=== PATIENT | male | born 1985 | race Hispanic/Latino ===

== ENCOUNTER 2021-07-20 14:15 | Emergency (ER) | payer OTHER, SELFPAY ==
--- NOTE | ~2021-07-20 | CT_ITS ---
EXAMINATION: CT abdomen pelvis wo con DATE: 07/20/2021 16:53 INDICATION: Left lower quadrant and left flank pain TECHNIQUE: Computed tomography (CT) of the abdomen and pelvis was performed without intravenous contr ast. The dose-length product (DLP) was 1040.76 mGy-cm. Automated exposure control and iterative recon struction technique were employed. COMPARISON: None FINDINGS: The lung bases are clear. The heart size is normal. The liver is diffusely low in attenuati on when compared with the spleen, consistent with hepatic steatosis. The spleen, pancreas, gallbladde r, and adrenal glands are normal. The kidneys are unremarkable. No stones are identified in the kidne ys, ureters, or bladder. There is no hydronephrosis or hydroureter. No pathologically enlarged abdomi nal or pelvic lymph nodes are identified. There is no free intraperitoneal gas or evidence of bowel o bstruction. There is a fat-containing umbilical hernia. IMPRESSION: 1. No CT correlate for the patient's symptoms. Reviewed, dictated and finalized at location F.
[2021-07-20 14:20] VITALS: BP 136/80; PULSE 73; RESP 16; TEMP 36.5; O2SAT 98
--- NOTE | 2021-07-20 16:37 | ED.ABDPAIN ---
HPI - Abdominal Pain General Chief Complaint: Abdominal Pain Stated Complaint: abd pain Time Seen by Provider: 07/20/21 16:36 Source: patient Mode of arrival: ambulatory Limitations: no limitations History of Present Illness HPI narrative: Patient is a 35-year-old male complaining of left flank pain, 5 out of 10, sharp, nonradiating started proxy 1 month ago. Patient denies any abdominal pain, chest pain, shortness of breath, nausea, vomiting, diarrhea, urinary symptoms, fever or chills. Review of Systems Review of Systems: All systems reviewed & are unremarkable except as noted in HPI and below Constitutional: Constitutional: Denies body ache(s), Denies chills, Denies excessive sweating, Denies fatigue, Denies fever(s), Denies headache(s), Denies lethargy, Denies malaise, Denies weakness and Denies weight loss Eyes: Eyes: Denies blurry vision, Denies change in vision and Denies loss of vision ENT: Denies dizziness, Denies ear discharge, Denies headache(s), Denies lip swelling, Denies epistaxis, Denies nasal congestion, Denies neck pain, Denies throat swelling and Denies tongue swelling Cardiovascular: Cardiovascular: Denies chest pain, Denies chest pain at rest, Denies chest pain with activity, Denies diaphoresis, Denies rapid heart rate, Denies edema, Denies irregular heart rhythm, Denies lightheadedness, Denies palpitations, Denies dyspnea and Denies dyspnea on exertion Respiratory: Respiratory: Denies chest congestion, Denies cough, Denies hemoptysis, Denies dyspnea and Denies dyspnea on exertion Gastrointestinal: Gastrointestinal: Denies melena, Denies hematochezia, Denies diarrhea, Denies nausea, Denies vomiting and Denies hematemesis Musculoskeletal: Musculoskeletal: Denies abnormal gait, Denies deformity, Denies joint swelling, Denies limited range of motion, Denies neck pain and Denies numbness Neurologic: Denies Abnormal speech present, Denies abnormal gait, Denies confusion, Denies dizziness, Denies headache(s), Denies focal weakness, Denies loss of vision, Denies numbness, Denies Other visual disturbances, Denies Sensory deficit (Neuro) and Denies weakness Psychiatric: Psychiatric: Denies confusion, Denies depression, Denies auditory hallucinations, Denies homicidal ideation and Denies suicidal ideation Endocrine: Endocrine: Denies cold intolerance, Denies excessive sweating, Denies fatigue, Denies heat intolerance and Denies palpitations Hematologic/Lymphatic: Hematologic/Lymphatic: Denies easy bleeding and Denies easy bruising Allergic/Immunologic: Allergic/Immunologic: Denies lip swelling, Denies throat swelling and Denies tongue swelling PMFSH Comments Past medical history: None Family history: None Social history: Non-smoker no EtOH or drug use Exam Const: General: cooperative, healthy appearing, comfortable, no acute distress, well developed, alert and awake; No confusion Orientation/consciousness: oriented to person, oriented to place, oriented to time, patient oriented x3 and No confusion Limitations: no limitations HENMT: Head: normal to inspection, normocephalic and atraumatic Ears: hearing grossly normal bilaterally, TM normal on the right and TM normal on the left General nose exam: Normal external nose present, Normal nares present and No nasal discharge present Face and sinus: normal facial exam Mouth: Yes Normal oral and palatal mucosa present, Yes lip normal, Yes tongue normal and Yes oropharynx normal Throat: posterior oropharynx normal, tonsils normal and uvula midline Eyes: General: appearance normal, both eyes and all related structures Pupils: Equal, round and reactive pupils present EOM: EOMs intact bilaterally Neck: Neck: normal visual inspection, full ROM, no lymphadenopathy and no meningeal signs Chest: Chest palpation & inspection: normal inspection of the chest Resp: Effort & Inspection: normal respiratory effort, able to speak in complete sentences, no respiratory distress and not tachypn
[2021-07-20 16:52] LABS: Basophils Absolute Auto 0.1 K/mm3 (0.0-0.1); Basophils Percent Auto 0.5 % (0.2-1.2); Eosinophils Absolute Auto 0.1 K/mm3 (0-0.3); Eosinophils Percent Auto 0.9 % (0-4.4); Hematocrit 48.2 % (42.0-52.0); Hemoglobin 15.9 g/dL (14.0-18.0); Immature Granulocyte Absolute 0.03 K/mm3 (0.00-0.031); Immature Granulocyte Percent A 0.3 % (0-0.5); Lymphocytes Absolute Auto 3.11 K/mm3 (0.9-3.2); Lymphocytes Percent Auto 30.8 % (18.3-44.2); Mean Corpuscular Hemoglobin 31.1 pg (26-34); Mean Corpuscular Volume 94.1 fl (80-100); Mean Platelet Volume 10.1 fl (7.4-10.4); Monocytes Absolute Auto 0.7 K/mm3 (0.1-0.6); Monocytes Percent Auto 6.6 % (2.6-8.5); Neutrophils Absolute Auto 6.1 K/mm3 (1.3-6.7); Neutrophils Percent Auto 60.9 % (45.5-73.1); Platelet Count Result 323 k/mm3 (150-375); Red Blood Count 5.12 M/mm3 (4.6-6.20); Red Cell Distribution Width 13.1 % (11.5-14.5); White Blood Count 10.1 K/mm3 (4.5-10.0)
[2021-07-20 17:03] LABS: Alanine Aminotransferase 57 U/L (4-50); Albumin Level 5.1 g/dL (3.5-5.1); Alkaline Phosphatase 77 U/L (38-126); Anion Gap 9 mmol/L (8-16); Aspartate Amino Transferase 45 U/L (17-59); Bilirubin,Total 0.7 mg/dL (0.2-1.3); Blood Urea Nitrogen 19 mg/dL (9-20); Calcium 9.3 mg/dL (8.4-10.2); Carbon Dioxide 28 mmol/L (22-30); Chloride 104 mmol/L (98-107); Estimated CRCL calculation 102 ml/min; Estimated Glomerular Filt Rate > 60; Glucose 96 mg/dL (65-110); Lipase 63 U/L (23-300); Potassium 4.1 mmol/L (3.4-5.0); Sodium 141 mmol/L (137-145)
[2021-07-20 17:23] LABS: Add Urine Microscopic? YES; Appearance Urine Clear (Clear); Bilirubin Urine Negative (Negative); Blood Urine 2+ (Negative); Color Urine Amber (Yellow); Glucose Urine UA Negative (Negative); Ketones Urine Trace mg/dL (Negative); Leukocyte Esterase Ur Negative LEU/UL (Negative); Mucus Urine Moderate /lpf; Nitrate Urine Negative (Negative); Protein Urine 1+ mg/dL (Negative); Specific Grav Ur 1.029 (1.001-1.035); Squamous Epithelial Cell Urine Rare /hpf (Few); Urobilinogen Urine Negative mg/dL (<2.0); WBC Urine 0-3 /hpf
[2021-07-20 18:34] VITALS: BP 142/86; PULSE 86; RESP 14; O2SAT 99
== END 2021-07-20 18:35 | disposition home or self-care (01) ==
PROVIDERS: Emergency Provider Emergency Medicine
DX: R10.9 Unspecified abdominal pain (principal); R31.29 Other microscopic hematuria
CPT/HCPCS: 36415; 74176; 80053; 81001; 83690; 85025; 99284

== ENCOUNTER 2024-04-25 07:55 | Outpatient (CLI) | payer OTHER, MEDICAID, SELFPAY ==
--- OUTSIDE RECORDS SUMMARY | 2024-04-25 08:02 | XMS_ITS | Clinical Summary ---
Author Organization [facility] Address [address] [address] Care Team Providers Care Quality Engineering Manager Name Role Phone Jeremy Herrera MD Primary Care Provider [phone] Source Comments [facility],non-owned Affiliates and Associated Physician Practices is amultiple site organization consisting of ambulatory clinics and hospital sitesin [place] and [place]. This disclosure is being madepursuant to the Care Everywhere program and may not contain all information available regarding this patient. Last updated 17.[facility] Allergies No known active allergies Medications * Be aware that medications may not be up to date on this document. Alwaysverify current medications with the patient. Medication Sig Dispensed Refills Start Date End Date Status doxycycline hyclate (VIBRAMYCIN) 100 MG tablet Take 100 mg by mouth 2 times daily FOR 7 DAYS 08/01/2021 Active Active Problems Problem Noted Date Diagnosed Date MRSA (methicillin resistant staph aureus) cultur e positive 02/19/2014 Overview (03/02/2014): right buttocks Resolved Problems Problem Noted Date Diagnosed Date Resolved Date Cough 06/14/2009 08/05/2021 Immunizations Name Administration Dates Next Due FLU VACCINE TRI IIV3 SPLIT IM (FLUVIRIN) 014 INFLUENZA VACCINE, QUADR. (F LUZONE; FLULAVAL; FLUARIX; AFLURIA QUADRIVALENT; 6MO+), 0.5 ML (IIV4) 02/18/2021 INFLUENZA VACCINE, TRIV. (FL UZONE; FLULAVAL; FLUARIX; AFLURIA TRIVALENT; 6MO+), 0.5 ML (IIV3) 01/10/2015 Family History Medical History Relation Name Comments Hypercholesterolemia Father CAD (Coronary Artery Disease) Maternal Grandfather SC 60's Cancer - Pancreatic Maternal Grandmother Depression Mother Diabetes Mother Thyroid Disease Mother Cancer - Lung Paternal Grandfather Cancer - Other Paternal Grandmother stoma ch None Known Sister Cancer - Colon Neg Hx Colon polyps Neg Hx Relation Name Status Comments Father Alive Maternal Grandfather Maternal Grandmother Mother Alive Paternal Grandfather Paternal Grandmother Sister Alive Social History Tobacco Use Types Packs/Day Years Used Date Smoking Tobacco: Never Smokeless Tobacco: Former Chew Quit: 06/2021 Alcohol Use Standard Drinks/Week Comments Yes 1.7 (1 standard drink = 0.6 oz p ure alcohol) PHQ-2 Answer Date Recorded PHQ2 TOTAL SCORE 0 08/05/2021 Sex and Gender Information Value Date Recorded Sex Assigned at Male 03/06/2021 6:59 AM [employer] Gender Identity Male 03/06/2021 6:59 AM [employer] Sexual Orientation Straight 03/06/2021 6: 59 AM [employer] Last Filed Vital Signs Vital Sign Reading Time Taken Comments Blood Pressure 132/80 08/05/2021 4:00 PM CDT Pulse 75 08/05/2021 4:00 PM CDT Temperature 36.7 ??C (98.1 ??F) 03/03/2018 12:[address] Respiratory Rate 17 07/10/2015 9:50 AM CDT Oxygen Saturation 97% 08/05/2021 4:00 PM CDT Inhaled Oxygen Concentration - - Weight 99.9 kg (220 lb 3.2 oz) 08/05/2021 4:00 P M CDT Height 162.6 cm (5' 4 ) 08/05/2021 4:00 PM CDT Body Mass Index 37.8 08/05/2021 4:00 PM CDT Plan of Treatment Health Maintenance Due Date Last Done Comments HIV SCREENING 2000 HEPATITIS C SCREENING 12/24/2003 DTAP/TDAP/TD VACCINES (1 - Tdap) 2004 HEPATITIS B VACCINE (1 of 3 - 19+ 3-dose series) 2004 COVID-19 VACCINE (2023-2 5 season) 2023 08/15/2020, 07/12/2020 INFLUENZA VACCINE (#1) 2023 , 01/10/2015, 01/02/2014 DEPRESSION SCREENING 03/29/2024 08/05/2021 ZOSTER VACCINE (1 of 2) 12/29/2035 HIB VACCINE Aged Out No longer eligi ble based on patient's age to complete this topic HPV VACCINE Aged Out No longer eligi ble based on patient's age to complete this topic MENINGOCOCCAL (Group B) VACCINE Aged Out No longer eligible b ased on patient's age to complete this topic MENINGOCOCCAL VACCINE Aged Out No nicole brittany eligible based on patient's age to complete this topic PNEUMOCOCCAL VACCINE Aged Out No long er eligible based on patient's age to complete this topic Additional Health Concerns Infection Onset Date Last Indicated MRSA 03/02/2014 03/02/2014 Care Teams Quality Engineering Manager Relationship Specialty Start Date End Date Jeremy Herrera MD [id number] [facility] [place] [phone] PCP - General Family Medicine 08/05/21
--- OUTSIDE RECORDS SUMMARY | 2024-04-25 08:02 | XMS_ITS | Patient Health Summary ---
Author Organization [facility] Address [address] [place] [address] Care Team Providers Care Back Digger Operator Name Role Phone Jeremy Herrera MD Primary Care Provider [phone] Note from [facility],non-owned Affiliates and Associated Physician Practices is amultiple site organization consisting of ambulatory clinics and hospital sitesin [place], [place], [place] and [place]. This disclosure is being madepursuant to the Care Everywhere program and may not contain all information available regarding this patient. Last updated 17.[facility] Allergies No known active allergies Medications * Be aware that medications may not be up to date on this document. Alwaysverify current medications with the patient. * doxycycline hyclate (VIBRAMYCIN) 100 MG tablet(Started 08/01/2021) Take 100 mg by mouth 2 times daily FOR 7 DAYS Active Problems Problem Noted Date Diagnosed Date MRSA (methicillin resistant staph aureus) cultur e positive 02/19/2014 Resolved Problems Problem Noted Date Diagnosed Date Resolved Date Cough 06/14/2009 08/05/2021 Immunizations * FLU VACCINE TRI IIV3 SPLIT IM (FLUVIRIN)(Given 01/02/2014) * INFLUENZA VACCINE, QUADR. (FLUZONE; FLULAVAL; FLUARIX; AFLURIA QUADRIVALENT; 6MO+), 0.5 ML (IIV4)(Given 02/18/2021) * INFLUENZA VACCINE, TRIV. (FLUZONE; FLULAVAL; FLUARIX; AFLURIA TRIVALENT; 6MO+), 0.5 ML (IIV3)(Given 01/10/2015) Social History Tobacco Use Types Packs/Day Years Used Date Smoking Tobacco: Never Smokeless Tobacco: Former Chew Quit: 06/2021 Alcohol Use Standard Drinks/Week Comments Yes 1.7 (1 standard drink = 0.6 oz p ure alcohol) PHQ-2 Answer Date Recorded PHQ2 TOTAL SCORE 0 08/05/2021 Sex and Gender Information Value Date Recorded Sex Assigned at Male 03/06/2021 6:59 AM CARD MOUNTER Gender Identity Male 03/06/2021 6:59 AM CARD MOUNTER Sexual Orientation Straight 03/06/2021 6: 59 AM CARD MOUNTER Last Filed Vital Signs Vital Sign Reading [...] Mass Index 37.8 08/05/2021 4:00 PM CDT Procedures * PATHOLOGY/CYTOLOGY REPORT ORDER(Performed 03/08/2021) * EGD(Performed 03/07/2021) Performed for H. pylori infection * CARDIAC EKG ORDER(Performed 07/11/2015) * CARDIAC RHYTHM STRIP ORDER(Performed 07/11/2015) * XR CHEST 2VW(Performed 07/10/2015) Performed for Chest pain, unspecified type * TROPONIN I(Performed 07/10/2015) * COMPREHENSIVE METABOLIC PANEL(Performed 07/10/2015) * CBC W AUTO DIFFERENTIAL(Performed 07/10/2015) * EKG 12-LEAD(Performed 07/10/2015) Performed for Chest pain, unspecified type * ED INCISION AND DRAINAGE(Performed 02/19/2014) Performed for Abscess of buttock, right * CULTURE WOUND+GRAM STAIN(Performed 02/19/2014) * TROPONIN I(Performed 04/13/2012) * XR CHEST 2VW(Performed 04/13/2012) Performed for Chest Pain * CBC W AUTO DIFFERENTIAL(Performed 04/13/2012) * URINALYSIS REFLEX MICROSCOPIC REFLEX CULTURE(Performed 04/13/2012) * BASIC METABOLIC PANEL (CALCIUM TOTAL)(Performed 04/13/2012) * TROPONIN I(Performed 04/13/2012) * D-DIMER(Performed 04/13/2012) * EKG 12-LEAD(Performed 04/13/2012) Performed for Chest Pain * GENERAL HEALTH PANEL(Performed 04/13/2012) Performed for Chest Pain * EKG 12-LEAD(Performed 04/13/2012) Performed for Chest Pain * XR CHEST 2VW(Performed 06/14/2009) Performed for Cough * PT-INR(Performed 06/14/2009) Performed for Hemorrhage of Rectum and Anus * COMPREHENSIVE METABOLIC PANEL(Performed 06/14/2009) Performed for Hemorrhage of Rectum and Anus * CBC W AUTO DIFFERENTIAL(Performed 06/14/2009) Performed for Hemorrhage of Rectum and Anus * ANGELIQUE BLOOD SCREEN W/REFLEX TITER(Performed 08/26/2007) Performed for Gen Psychiatric Exam NEC * TSH(Performed 08/26/2007) Performed for Gen Psychiatric Exam NEC * VITAMIN B12(Performed 08/26/2007) Performed for Gen Psychiatric Exam NEC * T4 TOTAL(Performed 08/26/2007) Performed for Gen Psychiatric Exam NEC * RPR(Performed 08/26/2007) Performed for Gen Psychiatric Exam NEC * COMPREHENSIVE METABOLIC PANEL(Performed 08/26/2007) Performed for Gen Psychiatric Exam NEC * CBC W AUTO DIFFERENTIAL(Performed 08/26/2007) Performed for Gen Psychiatric Exam NEC * URINE DRUG SCREEN IMMUNOASSAY(Performed 08/26/2007) Performed for Gen Psychiatric Exam NEC * URINALYSIS REFLEX TO MICROSCOPIC NO CULTURE(Performed 08/26/2007) Performed for Gen Psychiatric Exam NEC * CT CHEST W CONTRAST(Performed 06/27/2007) Performed for Abn Fd-Intrathor Org NEC Results * PATHOLOGY/CYTOLOGY REPORT ORDER (03/08/2021) 03/08/2021 Narrative 03/08/2021 Ordered by an unspecified provider. Scanned Document LAB - PATHOLOGY/CYTO LOGY ORDERABLES * EGD (03/07/2021) Vickie Finley FRAMING MECHANIC-[facility] PROCEDURE OR DERABLES [facility] RESULT SCAN * CARDIAC RHYTHM STRIP ORDER (07/11/2015 6:32 PM CDT) Narrative 07/11/2015 6:32 PM CDT Ordered by an unspecified provider. Scanned Document CARDIAC SERVICES ORD ERABLES * CARDIAC EKG ORDER (07/11/2015 6:32 PM CDT) Narrative 07/11/2015 6:32 PM CDT Ordered by an unspecified provider. Scanned Document CARDIAC SERVICES ORD ERABLES * XR CHEST PA AND LATERAL (07/10/2015 9:15 AM CDT) Only the most recent of3 resultswithin the time period is included. Anatomical Region Laterality Modality Chest Radiographic Verena ging 07/10/2015 9:32 AM CDT Impressions 07/10/2015 9:43 AM CDT No acute disease. Narrative 07/10/2015 9:43 AM CDT Chest 2 views History: Chest pain Findings: The mediastinum and heart are normal. The lungs are clear. No bony abnormality is seen. Comparison is made to the prior chest x-ray from 2012. Procedure Note Donaldo Mondragon MD - 07/10/2015 Chest 2 views History: Chest pain Findings: The mediastinum and heart are normal. The lungs are clear. No bony abnormality is seen. Comparison is made to the prior chest x-ray from 2012. IMPRESSION No acute disease. Raymon Soto Dimas DO DIAGNOSTIC IMAGING O RDERABLES * TROPONIN I (07/10/2015 9:00 AM CDT) Only the most recent of3 resultswithin the time period is included. Troponin I <0.015 0.000 - 0.049 ng/mL 07/10/2015 9:28 AM CDT [facility] Blood BLOOD SPECIMEN / Unknown Venipuncture / Unknown 07/10/2015 9:00 AM CDT 07/10/2015 9:08 AM CDT Narrative [facility] - 07/10/2015 9:28 AM CDT Note: Diagnosis of myocardial infarction requires symptoms of ischemia or EKG changes of ischemia and Troponin I >99th of normal (0.05 ng/mL). Troponin should be drawn on initial assessment and 3-6 hours later as clinically indicated. Any condition resulting in myocardial cell damage can increase cardiac troponin levels. In addition to myocardial infarction, these include but are not limited to congestive heart failure (CHF), arrhythmia, myocarditis, and non-cardiac related causes such as pulmonary embolism, renal failure and sepsis. Raymon Cochran DO LAB - CHEMISTRY GAMALIEL AGUILLON [facility] [address] [place] [address] * (ABNORMAL) CBC W AUTO DIFFERENTIAL (07/10/2015 9:00 AM CDT) Only the most recent of4 resultswithin the time period is included. WBC 8.1 4.4 - 10.7 x10E9/L 07/10/2015 9:10 AM [facility] WBC Corrected x10E9/L 07/10/2015 9:10 AM [facility] RBC 4.78 3.80 - 5.40 x10E12/L 07/10/2015 9:10 AM [facility] Hemoglobin 14.4 12.0 - 17.6 gm/dL 07/10/2015 9:10 AM [facility] Hematocrit 41.7 35.2 - 51.7 % 07/10/2015 9:10 AM [facility] MCV 87.2 80.7 - 98.3 fl 07/10/2015 9:10 AM [facility] MCH 30.1 26.7 - 34.0 pg 07/10/2015 9:10 AM [facility] MCHC 34.5 30.8 - 35.9 gm/dL 07/10/2015 9:10 AM [facility] Platelet Count 300 153 - 416 x10E9/L 07/10/2015 9:10 AM [facility] RDW-CV 12.1 12.1 - 14.9 % 07/10/2015 9:10 AM [facility] MPV 10.6 9.4 - 12.9 fl 07/10/2015 9:10 AM T [facility] Neutrophils % 47.0 44.0 - 73.0 % 07/10/2015 9:10 AM CDT [facility] Lymphocytes % 44.9(H) 20.0 - 43.0 % 07/10/2015 9:10 AM T [facility] Monocytes % 4.8(L) 5.0 - 13.0 % 07/10/2015 9:10 AM T [facility] Eosinophils % 2.6 0.0 - 6.0 % 07/10/2015 9:10 AM T [facility] Basophils % 0.5 0.0 - 2.0 % 07/10/2015 9:10 AM T [facility] Immature Granulocytes 0.2 0 - 1 % 07/10/2015 9:10 AM T [facility] Neutrophil Absolute 3.79 2.01 - 7.14 x10E9/L 07/10/2015 9:10 AM T [facility] Lymphocytes Absolute 3.63 1.07 - 3.94 x10E9/L 07/10/2015 9:10 AM T [facility] Monocytes Absolute 0.39 0.26 - 1.07 x10E9/L 07/10/2015 9:10 AM T [facility] Eosinophils Absolute 0.21 0 - 0.47 x10E9/L 07/10/2015 9:10 AM [facility] Basophils Absolute 0.04 0 - 0.08 x10E9/L 07/10/2015 9:10 AM T [facility] Immature Granulocytes Absolute 0.02 0.00 - 0.06 x10E9/L 07/10/2015 9:10 AM T [facility] nRBC Auto 0 /100 WBC 07/10/2015 9:10 AM T [facility] Blood BLOOD SPECIMEN / Unknown Venipuncture / Unknown 07/10/2015 9:00 AM CDT 07/10/2015 9:08 AM CDT Raymon Soto Dimas DO LAB - HEMATOLOGY ORD ERABLES [facility] [address] [place] [address] * (ABNORMAL) COMPREHENSIVE METABOLIC PANEL (07/10/2015 9:00 AM T) Only the most recent of3 resultswithin the time period is included. [facility] Signature Glucose 118(H) 74 - 106 mg/dL 07/10/2015 9:27 AM [facility] Sodium 138 136 - 145 mmol/L 07/10/2015 9:27 AM [facility] Potassium 3.8 3.5 - 5.1 mmol/L 07/10/2015 9:27 AM [facility] Chloride 106 98 - 107 mmol/L 07/10/2015 9:27 AM [facility] CO2 27 22 - 31 mmol/L 07/10/2015 9:27 AM [facility] Calcium 8.6 8.5 - 10.1 mg/dL 07/10/2015 9:27 AM [facility] Anion Gap 5 5 - 20 mmol/L 07/10/2015 9:27 AM [facility] BUN 17 7 - 21 mg/dL 07/10/2015 9:27 AM [facility] Creatinine 1.00 0.50 - 1.30 mg/dL 07/10/2015 9:27 AM [facility] Alkaline Phosphatase 74 38 - 126 U/L 07/10/2015 9:27 AM [facility] ALT 77 12 - 78 U/L 07/10/2015 9:27 AM [facility] AST 37 5 - 40 U/L 07/10/2015 9:27 AM [facility] Protein Total 7.7 6.4 - 8.2 gm/dL 07/10/2015 9:27 AM [facility] Albumin 3.9 3.4 - 5.0 gm/dL 07/10/2015 9:27 AM [facility] Bilirubin Total 0.3 0.2 - 1.0 mg/dL 07/10/2015 9:27 AM [facility] eGFR by MDRD >60 >60 mL/min/1.7 3m2 07/10/2015 9:27 AM [facility] eGFR by MDRD >60 >60 mL/min/1.7 3m2 07/10/2015 9:27 AM CDT [facility] Blood BLOOD SPECIMEN / Unknown Venipuncture / Unknown 07/10/2015 9:00 AM CDT 07/10/2015 9:08 AM CDT Raymon Cochran DO LAB - CHEMISTRY GAMALIEL JOSIECRUZ Performing Organization Address City/[facility]/ZIP Co de Phone Number [facility] [address] [place] [address] * EKG 12-LEAD (07/10/2015 8:24 AM CDT) Only the most recent of3 resultswithin the time period is included. Ventricular Rate 66 BPM [facility] Atrial Rate 66 BPM [facility] P-R Interval 138 ms [facility] QRS Duration ms 96 ms [facility] Q-T Interval ms 388 ms [facility] QTC Calculation (Bezet) 406 ms [facility] Calculated P [place] 28 degrees [facility] Calculated R [place] 59 degrees [facility] Calculated T [place] 37 degrees [facility] Interpretation EKG Sinus rhythm with frequent Premature ventricular complexes Otherwise normal ECG When compared with ECG of 13-APR-2012 15:17, No significant change was found Confirmed by SEUC ??EARNEST BERNAL ([id number]) on 07/11/2015 11:23:13 AM [facility] 07/10/2015 8:24 AM CDT 07/11/2015 11:23 AM CDT Raymon Cochran DO ECG ORDERABLES Performing Organization Address City/[facility]/ZIP Co de Phone Number [facility] * ED INCISION AND DRAINAGE (02/19/2014 6:25 PM CARD MOUNTER) Narrative Terrie Gunderson APRN-CNP - 02/19/2014 6:25 PM CARD MOUNTER JENIFER Patiño ? 02/19/2014 ??6:25 PM Provider contact with the patient: 02/19/2014 ?15:52 Juan Spivey [id number] [facility] EM[facility]GENCY [facility] History Chief Complaint Patient presents with ? ? Abscess ??c/o ? abcess to R buttocks since last , more painful today HPI Comments: Presents to the ED with c/o abscess to the right buttock. Onset with gradual worsening. No prior abscess history. Denies fever. 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 No other complaints. Abscess The history is provided by the patient. This is a new problem. The current episode started less than one week ago. There has been no fever. Past Medical History Diagnosis Date ? ? Clavicle fracture ?? Past Surgical History Procedure Laterality Date ? ? Appendectomy ? Tonsillectomy ? Myringotomy ?? Family History Problem Relation Age of Onset ? ? Depression Mother ? Diabetes Mother ? Thyroid Disease Mother ? Hypercholesterolemia Father ? [place]<55(male) Maternal Grandfather ?? History Social History ? ? Marital Status: Single ??Spouse Name: N/A ??Number of Children: N/A ? ? Years of Education: N/A Occupational History ? ? Not on file. Social History Main Topics ? ? Smoking status: Never Smoker ? Smokeless tobacco: Current User ??Types: Chew ? ? Alcohol Use: 1.0 oz/week ??2 Cans of beer per week ? ? Drug Use: No ? ? Sexual Activity: Not on file Other Topics Concern ? ? Not on file Social History Narrative ? ? No narrative on file Review of Systems Review of Systems Constitutional: Negative. ??Negative for fever. HENT: Negative. ?? Eyes: Negative. ?? Respiratory: Negative. ?? Cardiovascular: Negative. ?? Gastrointestinal: Negative. ?? Genitourinary: Negative. ?? Musculoskeletal: Negative. ?? Skin: ? Abscess right buttock. Neurological: Negative. ?? Endo/Heme/Allergies: Negative. ?? Psychiatric/Behavioral: Negative. ?? All other systems reviewed and are negative. Physical Exam BP 160/103 Pulse 96 Temp(Src) 98.8 ??F Resp 16 Ht 1.549 m (5' 1 ) Wt 90.719 kg (200 lb) BMI 37.81 kg/m2 SpO2 98% Physical Exam Constitutional: He is oriented to person, place, and time. Vital signs are normal. He appears well-developed and well-nourished. HENT: Head: Normocephalic and atraumatic. Neck: Full passive range of motion without pain. Cardiovascular: Regular rhythm. ?? Abdominal: Normal appearance. There is no tenderness. Musculoskeletal: Normal range of motion. ? Back: Neurological: He is alert and oriented to person, place, and time. Skin: Skin is warm, dry and intact. Psychiatric: He has a normal mood and affect. His speech is normal and behavior is normal. Nursing note and vitals reviewed. Medications Current Outpatient Prescriptions Medication Sig Dispense Refill ? ? hydrocodone-acetaminophen (NORCO) 5-325 MG tablet Take 1 Tab by mouth every 6 hours as needed for Pain. ??20 Tab ??0 ? ? trimethoprim-sulfamethoxazole (BACTRIM DS) 800-160 MG tablet Take 2 Tabs by mouth 2 times daily. ??40 Tab ??0 ? ? fluticasone propionate (FLONASE) 50 MCG/ACT nasal spray [place] 2 Sprays into each nostril once daily. ??1 Bottle ??5 Procedures Incision/Drainage Date/Time: 02/19/2014 6:18 PM Performed by: TERRIE GUNDERSON Authorized by: TERRIE GUNDERSON Risks and benefits: risks, benefits and alternatives were discussed Consent given by: patient Patient understanding: patient states understanding of the procedure being performed Patient identity confirmed: verbally with patient Time out: Immediately prior to procedure a time out was called to verify the correct patient, procedure, equipment, support services specialist and site/side marked as required. Type: abscess Body area: trunk (left buttock) Anesthesia: local infiltration Local anesthetic: lidocaine 1% without epinephrine Anesthetic total: 5 ml Scalpel size: 11 Incision type: single straight Complexity: simple Drainage: purulent Drainage amount: moderate Wound treatment: wound left open Packing material: 1/4 in iodoform gauze Patient tolerance: Patient tolerated the procedure well with no immediate complications ECG Interpretation ECG Interpretation Lab Interpretation ? Oxygen Saturation Interpretation The oxygen saturation level is: 98%. The patient was on Room Air for the saturation measurement. Measurement frequency: Spot Check. Oxygen saturation interpretation is Normal. Intervention(s) used: None. No results found for this visit on 02/19/14. Progress Notes Pt. also seen & evaluated by my collaborating physician, Dr. García. We have discussed the testing & plan of care for this pt. Bactrim. [place] #20. Keep area clean & dry. May apply warm packs to promote further drainage. Monitor for fever, increasing redness, warmth, swelling, increasing pain, or streaking from wound. Packing out 3 days. Return if these occur. Discussed plan of care with patient & need for follow up. Pt agreeable and requests discharge. ED Course Medical Decision Making I have reviewed the: Nursing Notes and Vitals. I have interpreted the following results: Oxygen Saturation. Orders Placed This Encounter ? ? ED INCISION AND DRAINAGE ? ? CULTURE WOUND+GRAM STAIN ? ? hydrocodone-acetaminophen (NORCO) 5-325 MG tablet ? ? trimethoprim-sulfamethoxazole (BACTRIM DS) 800-160 MG tablet Clinical Impression Final diagnoses: Abscess of buttock, right Terrie Gunderson FRAMING MECHANIC-[facility] PROCEDURE/ MINOR SURGICAL ORDERABLES * (ABNORMAL) CULTURE WOUND+GRAM STAIN (02/19/2014 4:49 PM CARD MOUNTER) Pathologist [facility] Culture Light growth Acinetobacter baumannii(A) TAISHA 02/22/2014 6:16 AM [facility] Culture Light growth Staphylococcus aureus (MRSA)(A) TAISHA 02/22/2014 6:16 AM [facility] Gram Stain Few White blood cells 02/22/2014 6:16 AM [facility] Gram Stain Few Gram positive cocci in clusters 02/22/2014 6:16 AM [facility] Microbiology SPECIMEN FROM ABSCESS / Unknown Collection / Unknown 02/19/2014 4:49 PM [facility] 02/19/2014 4:59 PM [facility] Narrative [facility] - 02/22/2014 6:16 AM [facility] Methicillin Resistant Staphylococci are resistant to all currently available beta-lactam antibiotics with the exception of the newer cephalosporins with anti-MRSA activity. Contact precautions required. Organism Antibiotic Method Susceptibility Acinetobacter baumannii Ampicillin-sulbactam TAISHA <=2 ug/mL: Susceptible Acinetobacter baumannii Cefepime TAISHA 2 ug/mL: Susceptible Acinetobacter baumannii Ceftazidime TAISHA 4 ug/mL: Susceptible Acinetobacter baumannii Ciprofloxacin TAISHA <=0.25 ug/mL: Susceptible Acinetobacter baumannii Gentamicin TAISHA <=1 ug/mL: Susceptible Acinetobacter baumannii Meropenem TAISHA <=0.25 ug/mL: Susceptible Acinetobacter baumannii Piperacillin-tazobactam TAISHA <=4 ug/mL: Susceptible Acinetobacter baumannii Tobramycin TAISHA <=1 ug/mL: Susceptible Acinetobacter baumannii Trimethoprim-sul famethoxa zole TAISHA <=20 ug/mL: Susceptible Staphylococcus aureus methicillin-resistant (MRSA) Ciprofloxacin TAISHA >=8 ug/mL: Resistant Staphylococcus aureus methicillin-resistant (MRSA) Clindamycin TAISHA >=4 ug/mL: Resistant Staphylococcus aureus methicillin-resistant (MRSA) Doxycycline TAISHA <=0.5 ug/mL: Susceptible Staphylococcus aureus methicillin-resistant (MRSA) Erythromycin TAISHA >=8 ug/mL: Resistant Staphylococcus aureus methicillin-resistant (MRSA) Gentamicin TAISHA <=0.5 ug/mL: Susceptible Staphylococcus aureus methicillin-resistant (MRSA) Inducible Clindamycin Resistance TAISHA NEG ug/mL: - Staphylococcus aureus methicillin-resistant (MRSA) Levofloxacin TAISHA 4 ug/mL: Resistant Staphylococcus aureus methicillin-resistant (MRSA) Linezolid TAISHA 2 ug/mL: Susceptible Staphylococcus aureus methicillin-resistant (MRSA) Oxacillin TAISHA >=4 ug/mL: Resistant Staphylococcus aureus methicillin-resistant (MRSA) Tetracycline TAISHA <=1 ug/mL: Susceptible Staphylococcus aureus methicillin-resistant (MRSA) Trimethoprim-sulfamethoxa zole TAISHA >=320 ug/mL: Resistant Staphylococcus aureus methicillin-resistant (MRSA) Vancomycin TAISHA <=0.5 ug/mL: Susceptible Terrie BURGESS LAB - MICR OBIOLOGY ORDERABLES [facility] [address] [place] [address], [facility] * (ABNORMAL) URINALYSIS ROUTINE W/REFLEX TO CULTURE (04/13/2012 3:30 PM CARD MOUNTER) Source Clean Catch [facility] Color UA Yellow [facility] Character UA Clear [facility] Specific [place] UA 1.020 1.002 - 1.030 [facility] pH UA 6.5 5.0 - 8.0 [facility] Protein UA NEGATIVE NEG [facility] Blood UA TRACE(A) NEG [facility] Leukocyte UA NEGATIVE NEG [facility] Nitrite UA NEGATIVE NEG [facility] Glucose UA NEGATIVE NEG [facility] Ketone UA NEGATIVE NEG [facility] Bilirubin UA NEGATIVE NEG [facility] Urobilinogen UA 0.2 0.1 - 1.0 EU/dl [facility] RBC UA 0-2 0 - 1 /HPF [facility] Epithelial Cell UA 0-2 0 - 1 /HPF [facility] Culture Urine No culture to be done per protocol. [facility] Urine specimen (specimen) URINE SPECIMEN OBTAINED BY CLEAN CATCH PROCEDURE / Unknown 04/13/2012 3:30 PM CARD MOUNTER 04/13/2012 3:51 PM CARD MOUNTER Jeremy Allen MD LAB - URINALYSIS OR DERABLES Performing Organization Address [facility] de Phone Number [facility] [address] [place] [id number] * D-DIMER (04/13/2012 3:30 PM CARD MOUNTER) D-Dimer 0.26 0.00 - 0.50 mg/L FEU [facility] Comment D-Dimer [facility] Comment: The [employer] D-Dimer assay now in use at [facility] and [facility] is intended for use as an aid in diagnosis of venous thromboembolism [(VTE): deep vein thrombosis (DVT), pulmonary embolism (PE), and disseminated intravascular coagulation (DIC)], and has received FDA approval to exclude VTE in patients with low or moderate pretest probability of PE or DVT (per Wells' rules). At a clinical cut-off value 0.50 mg/L FEU, the Negative Predictive Value of this assay is 99.8% for excluding PE and 100% for excluding DVT. A very low percentage of patients with VTE may yield D-Dimer results below the cut-off value. An elevated D-Dimer result has low specificity (40.4% for PE, 35.5% for DVT) and is a poor predictor of VTE. An elevated D-Dimer result may indicate DIC in the appropriate clinical setting. Results of this test should always be interpreted in conjunction with the patient's medical history, clinical presentation, and other findings. Blood specimen (specimen) BLOOD SPECIMEN / Unknown 04/13/2012 3:30 PM CARD MOUNTER 04/13/2012 3:51 PM CARD MOUNTER Jeremy Allen MD LAB - COAGULATION O RDERABLES Performing Organization Address [facility] Co de Phone Number [facility] [address] [place] [id number] * BASIC METABOLIC PANEL (CALCIUM TOTAL) (04/13/2012 3:30 PM CARD MOUNTER) Glucose 92 70 - 110 mg/dL [facility] BUN 19 7.0 - 21.0 mg/dL [facility] Creatinine 0.70 0.5 - 1.3 mg/dL [facility] BUN/Creatinine Ratio 27.1 [facility] Sodium 138 136 - 145 mmol/L [facility] Potassium 3.6 3.5 - 5.1 mmol/L [facility] Chloride 102 98 - 107 mmol/L [facility] CO2 26 22.0 - 30.0 mmol/L [facility] Anion Gap 10 5 - 15 mmol/L [facility] Calcium 9.3 8.5 - 10.1 mg/dL [facility] eGFR by MDRD >60 SEE BELOW mL/min/1.7 3 m2 [facility] Comment: >60 Normal Chronic Disease <60 Renal Failure <15 Blood specimen (specimen) BLOOD SPECIMEN / Unknown 04/13/2012 3:30 PM CARD MOUNTER 04/13/2012 3:51 PM CARD MOUNTER Jeremy Allen MD LAB - CHEMISTRY ORD ERABLES [address] [address] * (ABNORMAL) GENERAL HEALTH PANEL (04/13/2012 11:44 AM CARD MOUNTER) Glucose 76 65 - 99 mg/dL [facility] ACCOUNT BILL BUN 21(H) 6 - 20 mg/dL [facility] ACCOUNT BILL Creatinine 0.94 0.76 - 1.27 mg/dL [facility] ACCOUNT BILL eGFR by MDRD 111 >59 mL/min/1. 73 [facility] ACCOUNT BILL eGFR by MDRD 129 >59 mL/min/1. 73 [facility] ACCOUNT BILL BUN/Creatinine Ratio 22(H) 8 - 19 [facility] ACCOUNT BILL Sodium 141 134 - 144 mmol/L [facility] ACCOUNT BILL Potassium 4.2 3.5 - 5.2 mmol/L [facility] ACCOUNT BILL Chloride 101 97 - 108 mmol/L [facility] ACCOUNT BILL CO2 25 20 - 32 mmol/L [facility] ACCOUNT BILL Calcium 9.8 8.7 - 10.2 mg/dL [facility] ACCOUNT BILL Protein Total 7.7 6.0 - 8.5 g/dL [facility] ACCOUNT BILL Albumin 4.8 3.5 - 5.5 g/dL [facility] ACCOUNT BILL Globulin Total 2.9 1.5 - 4.5 g/dL [facility] ACCOUNT BILL Albumin/Globulin Ratio 1.7 1.1 - 2.5 [facility] ACCOUNT BILL Bilirubin Total 0.4 0.0 - 1.2 mg/dL [facility] ACCOUNT BILL Alkaline Phosphatase 72 25 - 150 IU/L [facility] ACCOUNT BILL AST 41(H) 0 - 40 IU/L [facility] ACCOUNT BILL ALT 74(H) 0 - 44 IU/L [facility] ACCOUNT BILL TSH 1.520 0.450 - 4.500 uIU/mL [facility] ACCOUNT BILL WBC 9.9 4.0 - 10.5 x10E3/uL [facility] ACCOUNT BILL RBC 4.89 4.14 - 5.80 x10E6/uL [facility] ACCOUNT BILL Hemoglobin 14.8 12.6 - 17.7 g/dL [facility] ACCOUNT BILL Hematocrit 43.4 37.5 - 51.0 % [facility] ACCOUNT BILL MCV 89 79 - 97 fL [facility] ACCOUNT BILL MCH 30.3 26.6 - 33.0 pg [facility] ACCOUNT BILL MCHC 34.1 31.5 - 35.7 g/dL [facility] ACCOUNT BILL RDW 13.1 12.3 - 15.4 % [facility] ACCOUNT BILL Platelet Count 374 140 - 415 x10E3/uL [facility] ACCOUNT BILL Granulocytes % 41 40 - 74 % [facility] ACCOUNT BILL Lymphocytes % 45 14 - 46 % [facility] ACCOUNT BILL Monocytes % 8 4 - 13 % [facility] ACCOUNT BILL Eosinophils % 6 0 - 7 % [facility] ACCOUNT BILL Basophils % 0 0 - 3 % [facility] ACCOUNT BILL Immature Cells NOT NEEDED [facility] ACCOUNT BILL Comment:Ancillary determined the test is not needed Granulocytes Absolute 4.1 1.8 - 7.8 x10E3/uL [facility] ACCOUNT BILL Lymphocytes Absolute 4.3 0.7 - 4.5 x10E3/uL [facility] ACCOUNT BILL Monocytes Absolute 0.8 0.1 - 1.0 x10E3/uL [facility] ACCOUNT BILL Eosinophils Absolute 0.6(H) 0.0 - 0.4 x10E3/uL [facility] ACCOUNT BILL Basophils Absolute 0.0 0.0 - 0.2 x10E3/uL [facility] ACCOUNT BILL Immature Granulocytes 0 0 - 2 % [facility] ACCOUNT BILL Immature Granulocytes Absolute 0.0 0.0 - 0.1 x10E3/uL [facility] ACCOUNT BILL nRBC NOT NEEDED [facility] ACCOUNT BILL Comment:Ancillary determined the test is not needed Comment Hematology NOT NEEDED [facility] ACCOUNT BILL Comment:Ancillary determined the test is not needed BLOOD SPECIMEN / Unknown 04/13/2012 11:44 AM CARD MOUNTER 04/13/2012 6:02 PM CARD MOUNTER Narrative Resulting Agency Comment [facility] [address] ??[facility] [id number] Jessica Mathur DO LAB - CHEMISTRY GAMALIEL AGUILLON Performing Organization Address City/[facility]/ZIP Co de Phone Number [facility] ACCOUNT BILL * PT-INR (06/14/2009 1:23 AM CDT) PT 10.3 9.3 - 11.4 seconds [facility] INR 1.0 SEE BELOW [facility] Comment: 0.9-1.2 Normal 2.0-3.0 Therapeutic 2.5-3.5 High Risk BLOOD SPECIMEN / Unknown 06/14/2009 1:23 AM CDT 06/14/2009 1:32 AM CDT Edmond Pearson MD LAB - COAGULATION OR DERABLES [facility] [address] [place] [address] * RPR (08/26/2007 6:10 AM CDT) RPR Nonreactive NONREACTIVE [facility] 08/26/2007 6:10 AM CDT Sudheer Bang MD LAB - CHEMISTRY GAMALIEL AGUILLON Performing Organization Address City/[facility] Co de Phone Number [facility] [address] [place] [address] * ANGELIQUE BLOOD SCREEN (08/26/2007 6:10 AM CDT) ANGELIQUE Negative Negative [facility] 08/26/2007 6:10 AM CDT Narrative Resulting Agency Comment Performed By [facility] ? [address] ? [place] [address] Dinh Aceves LAB - CHEMISTRY GAMALIEL AGUILLON Performing Organization Address City/[facility]/ZIP Co de Phone Number [facility] [address] [place] [address] * VITAMIN B12 (08/26/2007 6:10 AM CDT) Vitamin B12 457 211 - 911 pg/mL [facility] 08/26/2007 6:10 AM CDT Narrative Resulting Agency Comment Performed By [facility] ? [address] ? [place] [address] Dinh Aceves LAB - CHEMISTRY GAMALIEL AGUILLON Performing Organization Address City/[facility] Co de Phone Number [facility] [address] [place] [address] * TSH (08/26/2007 6:10 AM CDT) TSH 1.856 0.35 - 5.50 uIU/ml [facility] 08/26/2007 6:10 AM CDT Narrative Resulting Agency Comment Performed By [facility] ? [address] ? [place] [address] Sudheer Bang MD LAB - CHEMISTRY GAMALIEL AGUILLON Performing Organization Address City/[facility]/ZIP Co de Phone Number [facility] [address] [place] [address] * T4 TOTAL (08/26/2007 6:10 AM CDT) T4 Total 7.5 4.5 - 10.9 ug/dL [facility] 08/26/2007 6:10 AM CDT Narrative Resulting Agency Comment Performed By [facility] ? [address] ? [place] [address] Sudheer Bang MD LAB - CHEMISTRY GAMALIEL AGUILLON Performing Organization Address City/[facility] Co de Phone Number [facility] [address] [place] [address] * URINALYSIS ROUTINE AUTO (08/26/2007 12:26 AM CDT) Source VOIDED [facility] Color UA Yellow [facility] Character UA Clear [facility] Specific [place] UA <=1.005 1.002 - 1.030 [facility] pH UA 5.5 5.0 - 8.0 [facility] Protein UA Negative NEG [facility] Blood UA 1+ NEG [facility] Leukocyte UA Negative NEG [facility] Nitrite UA Negative NEG [facility] Glucose UA Negative NEG [facility] Ketone UA Negative NEG [facility] Bilirubin UA Negative NEG [facility] Urobilinogen UA 0.2 0.1 - 1.0 E.U./dl [facility] WBC UA 0-1 0 - 1 /HPF [facility] RBC UA 0-1 0 - 1 /HPF [facility] Epithelial Cell UA 0-1 0 - 1 /HPF [facility] 08/26/2007 12:2 6 AM CDT Fabien Lacy MD LAB - URINALYSIS OR DERABLES Performing Organization Address City/[facility]/ZIP Co de Phone Number [facility] [address] [place] [address] * DRUG SCREEN TOX URINE PANEL (08/26/2007 12:26 AM CDT) Amphetamines Screen Urine Not Detected 1000 ng/mL Cutoff ng/mL [facility] Barbiturates Screen Urine Not Detected 300 ng/mL Cutoff ng/mL [facility] Benzodiazepines Screen Urine Not Detected 300 ng/mL Cutoff ng/mL [facility] Cannabinoids Screen Urine Not Detected 20 ng/mL Cutoff ng/mL [facility] Cocaine Screen Urine Not Detected 300 ng/mL Cutoff ng/mL [facility] Methadone Screen Urine Not Detected 300 ng/mL Cutoff ng/mL [facility] Methaqualone Screen Urine Not Detected 300 ng/mL Cutoff ng/mL [facility] Opiate Screen Urine Not Detected 300 ng/mL Cutoff ng/mL [facility] Phencyclidine Screen Urine Not Detected 25 ng/mL Cutoff ng/mL [facility] Propoxyphene Screen Urine Not Detected 300 ng/mL Cutoff ng/mL [facility] Oxycodone Screen Urine Not Detected 100 ng/mL Cutoff ng/mL [facility] Ecstasy Screen Urine Not Detected 500 ng/mL Cutoff ng/mL [facility] Creatinine Urine Tox 25.6 mg/dL [facility] GC/MS Screen Urine Negative [facility] Comment GC/MS Screen [facility] Comment: ? The GC/MS screen is a qualitative test for illicit drugs, ? narcotics, tranquilizers, sedative-hypnotics, antidepressants, ? cold medications, antihistamines, anticonvulsants, appetite ? suppressants, and date rape drugs, (Ecstasy, GHB-Gamma ? Hydroxybutyrate, Rolhypnol, Ketamine). Legal Disclaimer Urine This drug screen is designed for MEDICAL purposes only. It is not to be used for legal purposes including but not limited to workman's comp, police investigations, occupational issues, child custody. [facility] 08/26/2007 12:2 6 AM CDT Fabien Lacy MD LAB - URINE ATV MECHANIC RY ORDERABLES [facility] [address] [place] [address] * CT CHEST WITH CONTRAST [[id number]] (06/27/2007 5:48 PM CDT) Anatomical Region Laterality Modality Chest Computed Tomogra phy 06/28/2007 9:19 AM CDT Narrative 06/28/2007 9:30 AM CDT Examination: CT chest with contrast HISTORY: Abnormal chest x-ray CT scan through the chest was performed with use of IV contrast. There are no prior studies available for comparison. No signs of significant supraclavicular or axilla lymphadenopathy is appreciated. The thyroid gland appears unremarkable. The trachea and mainstem bronchi appear to be unremarkable. No signs of mediastinal or hilar lymphadenopathy or masses noted. There is a mild haziness noted in the anterior mediastinal fat probably reflecting some residual thymic tissue. The aorta and heart appear to be unremarkable. The lung siddiqui demonstrate no consolidative change, effusion or pneumothorax. No masses seen. The visualized upper abdominal structures demonstrate no significant abnormalities although they may be some mild fatty infiltration of the liver. IMPRESSION: There is minimal stranding and haziness noted within the anterior mediastinal fat probably reflecting some residual thymic tissue. Findings indicative of mild fatty infiltration of the liver. Procedure Note Deja Nation MD - 06/29/2007 Examination: CT chest with contrast HISTORY: Abnormal chest x-ray CT scan through the chest was performed with use of IV contrast. There are no prior studies available for comparison. No signs of significant supraclavicular or axilla lymphadenopathy is appreciated. The thyroid gland appears unremarkable. The trachea and mainstem bronchi appear to be unremarkable. No signs of mediastinal or hilar lymphadenopathy or masses noted. There is a mild haziness noted in the anterior mediastinal fat probably reflecting some residual thymic tissue. The aorta and heart appear to be unremarkable. The lung siddiqui demonstrate no consolidative change, effusion or pneumothorax. No masses seen. The visualized upper abdominal structures demonstrate no significant abnormalities although they may be some mild fatty infiltration of the liver. IMPRESSION: There is minimal stranding and haziness noted within the anterior mediastinal fat probably reflecting some residual thymic tissue. Findings indicative of mild fatty infiltration of the liver. Rosa Elena Ponce MD CT ORDERABLES Care Teams Back Digger Operator Relationship Specialty Start Date End Date Jeremy Herrera MD [address] [place] [address] PCP - General Family Medicine 08/05/21
--- OUTSIDE RECORDS SUMMARY | 2024-04-25 08:02 | XMS_ITS | Referral Summary ---
Author Organization [facility] Address [address] [place] [address] Care Team Providers Care Rehab Physician Name Role Phone Jeremy Herrera MD Primary Care Provider [phone] Source Comments [facility],non-owned Affiliates and Associated Physician Practices is amultiple site organization consisting of ambulatory clinics and hospital sitesin [place], [place], [place] and [place]. This disclosure is being madepursuant to the Care Everywhere program and may not contain all information available regarding this patient. Last updated 17.[facility] Allergies No known active allergies Medications * [...] AFLURIA TRIVALENT; 6MO+), 0.5 ML (IIV3) 01/10/2015 Social History Tobacco Use Types Packs/Day Years Used Date Smoking Tobacco: Never Smokeless Tobacco: Former Chew Quit: 06/2021 Alcohol Use Standard Drinks/Week Comments Yes 1.7 (1 standard drink = 0.6 oz p ure alcohol) PHQ-2 Answer Date Recorded PHQ2 TOTAL SCORE 0 08/05/2021 Sex and Gender Information Value Date Recorded Sex Assigned at Male 03/06/2021 6:59 AM ACTIVE DIRECTORY SYSTEMS ADMINISTRATOR Gender Identity Male 03/06/2021 6:59 AM ACTIVE DIRECTORY SYSTEMS ADMINISTRATOR Sexual Orientation Straight 03/06/2021 6: 59 AM ACTIVE DIRECTORY SYSTEMS ADMINISTRATOR Last Filed Vital Signs Vital Sign Reading [...] 08/05/2021 4:00 PM CDT Plan of Treatment Not on file Additional Health Concerns Infection Onset Date Last 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
--- OUTSIDE RECORDS SUMMARY | 2024-04-25 08:02 | XMS_ITS | Clinical Summary ---
Author Organization [facility] Address [address] [place] [phone] Care Team Providers Care Field Irrigation Worker Name Role Phone Brendon, Eloise Beckham MD Primary Care Provide r Allergies No known active allergies Medications No known medications Active Problems No known active problems Family History Medical History Relation Name Comments Diabetes Mother Thyroid Disease Mother Relation Name Status Comments Mother Social History Tobacco Use Types Packs/Day Years Used Date Smoking Tobacco: Never Smokeless Tobacco: Current Chew Alcohol Use Standard Drinks/Week Comments No 0 (1 standard drink = 0.6 oz pur e alcohol) Sex and Gender Information Value Date Recorded Sex Assigned at Not on file Legal Sex Male 1:49 PM CDT Gender Identity Not on file Sexual Orientation Not on file Last Filed Vital Signs Vital Sign Reading Time Taken Comments Blood Pressure 117/84 03/17/2021 1:01 PM PHLEBOTOMY LAB ASSISTANT Pulse 69 03/17/2021 1:01 PM PHLEBOTOMY LAB ASSISTANT Temperature 36.1 ??C (97 ??F) 03/17/2021 1:01 PM PHLEBOTOMY LAB ASSISTANT Respiratory Rate 16 03/17/2021 1:01 PM PHLEBOTOMY LAB ASSISTANT Oxygen Saturation 97% 03/17/2021 1:01 PM PHLEBOTOMY LAB ASSISTANT Inhaled Oxygen Concentration - - Weight 89.8 kg (198 lb) 05/18/2016 10:42 AM PHLEBOTOMY LAB ASSISTANT Height 166.4 cm (5' 5.5 ) 05/18/2016 10:42 AM CS T Body Mass Index 32.45 05/18/2016 10:42 AM PHLEBOTOMY LAB ASSISTANT Plan of Treatment Health Maintenance Due Date Last Done Comments DTAP/TDAP/TD VACCINES (1 - Tdap) 2004 HEPATITIS B VACCINES (1 of 3 - 19+ 3-dose series) 2004 INFLUENZA VACCINE (#1) 2023 HPV VACCINES Aged Out No longer eligi ble based on patient's age to complete this topic PNEUMOCOCCAL VACCINE 0-64 YEARS Aged Out No longer eligible based on patient's age to complete this topic Insurance [facility] BLUE ACCESS/TRUE BLUE PPO [place] [id number] [employer] PLUS Care Teams Field Irrigation Worker Relationship Specialty Start Date End Date Eloise Olivas MD [address] [place] [id number] PCP - General Family Practice 04/04/18
--- OUTSIDE RECORDS SUMMARY | 2024-04-25 08:02 | XMS_ITS | Clinical Summary ---
Author Organization [address] e Address [address] [place] [id number] Care Team Providers Care Bag Grader Name Role Phone Akash Carlisle MD Primary Care Provider [phone] Allergies No known active allergies Medications No known medications Active Problems Patient Care Coordination No te Formatting of this note migh t be different from the original. Hearing loss Problem Noted Date Diagnosed Date Obstructive sleep apnea 03/17/2022 Assessment & Plan (03/17/2022 4:33 PM FORESTRY AID): We did discuss the results of his recent polysomnogram. He does have moderate obstructive sleep apnea with desaturation. I will arrange for CPAP with auto PAP and supplies. Will follow otherwise as needed. Primary hypertension 01/12/2022 Assessment & Plan (01/12/2022 3:02 PM CDT): He was seen in the emergency room today. He was seen for chest pain and diagnosed with pleurisy. He was placed on steroids. He has not filled the medications at this time. He is here for elevated blood pressure. Blood pressure today is 130/96. We did discuss salt and caffeine. I placed him on lisinopril 10 mg daily. He will monitor numbers and follow periodically. 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 I did refer to ENT. His son has similar problems and does require hearing aid. Primary insomnia 12/30/2021 Assessment & Plan (12/30/2021 8:30 AM CDT): I did schedule polysomnogram and will follow with results. Annual physical exam 12/30/2021 Assessment & Plan (12/30/2021 8:30 AM CDT): Tetanus shot and flu shot were given. Labs were obtained. Needs flu shot 12/30/2021 Assessment & Plan (12/30/2021 8:30 AM CDT): Flu shot was given. Skin tags, multiple acquired 12/30/2021 Assessment & Plan (12/30/2021 8:30 AM CDT): He does have numerous skin tags many of which are irritated from clothing and jewelry. I did refer to dermatology. Obesity (BMI 30-39.9) 12/30/2021 Assessment & Plan (12/30/2021 8:32 AM CDT): We did discuss diet and exercise. We did discuss the effects of weight on sleep and cholesterol. Immunizations Name Administration Dates Next Due Influenza, Quadrivalent, Spl it, Preservative Free, Intramuscular 12/30/2021,02/18/2021 Influenza, Trivalent, IM (MDV) 01/02/2014 Influenza, Trivalent, Preservative Free, Intramu scular 01/10/2015 Tdap 12/30/2021 Surgical History Surgery Date Site/Laterality Comments APPENDECTOMY MYRINGOTOMY W/ TUBES Family History Medical History Relation Name Comments Hyperlipidemia Father Heart disease Maternal Grandfather Pancreatic cancer Maternal Grandmother Diabetes Mother Relation Name Status Comments Father Alive Maternal Grandfather Maternal Grandmother Mother Alive Social History Tobacco Use Types Packs/Day Years Used Date Smoking Tobacco: Never Smokeless Tobacco: Former Chew Quit: 06/27/2021 Tobacco Cessation:Counseling Given: Not Answered AUDIT-C Answer Date Recorded Q1: How often do you have a drink containing alc ohol? 2-4 times a month 12/30/2021 Average Number of Drinks Not on file 022 Frequency of Binge Drinking Not on file 06/2021 PHQ-2 Answer Date Recorded PHQ-2 Total Score (If total score is 3 or more points, staff should administer the PHQ-9) 0 12/30/2021 Personal Safety Answer Date Recorded Getting School Help Needed Not on file 04/03 Sex and Gender Information Value Date Recorded Sex Assigned at Not on file Legal Sex Male 11:11 PM FORESTRY AID Gender Identity Not on file Sexual Orientation Not on file Obstetrics History Last Filed Vital Signs Vital Sign Reading Time Taken Comments Blood Pressure 122/78 03/17/2022 4:20 PM FORESTRY AID Pulse 88 03/17/2022 4:20 PM FORESTRY AID Temperature 37.1 ??C (98.8 ??F) 02/10/2022 5:16 PM CS T Respiratory Rate 18 03/17/2022 4:20 PM FORESTRY AID Oxygen Saturation 98% 03/17/2022 4:20 PM FORESTRY AID Inhaled Oxygen Concentration - - Weight 90.7 kg (200 lb) 03/17/2022 4:20 PM FORESTRY AID Height 162.6 cm (5' 4 ) 03/17/2022 4:20 PM FORESTRY AID Body Mass Index 34.33 03/17/2022 4:20 PM FORESTRY AID Plan of Treatment Health Maintenance Due Date Last Done Comments Hepatitis C Screening 1985 Varicella Vaccines (1 of 2 - 13+ 2-dose series) 1998 Hepatitis B Screening 12/29/2003 Depression Screening 12/30/2022 12/30/2021 Regular Well Visit/Exam 18-64 12/30/2022 12/30/2021 Covid-19 Vaccine ( season) 2023 08/15/2020, 07/12/2020 Influenza Vaccine (#1) 2023 , 02/18/2021, 01/10/2015, Additional history exists DTaP/Tdap/Td Vaccine (2 - Td or Tdap) 12/31/2031 12/30/2021 HPV Vaccines Aged Out No longer eligi ble based on patient's age to complete this topic Pneumococcal vaccine <65 Aged Out No longer eligible based on patient's age to complete this topic Insurance [facility] [employer] [facility] [employer] Care Teams Bag Grader Relationship Specialty Start Date End Date Akash Carlisle MD [address] [place] [address] PCP - General Family Medicine 12/30/21
--- OUTSIDE RECORDS SUMMARY | 2024-04-25 08:02 | XMS_ITS | Referral Summary ---
Author Organization [address] e Address [address] [facility] [place] [address] Care Team Providers Care Embedded Systems Software Developer Name Role Phone Akash Carlisle MD Primary Care Provider [phone] Allergies No known active allergies Medications No known medications Active Problems Patient Care Coordination No te Formatting of this note migh t be different from the original. Hearing loss Problem Noted Date Diagnosed Date Obstructive sleep apnea 03/17/2022 Assessment & Plan (03/17/2022 4:33 PM ANESTHESIOLOGY PHYSICIAN): We did discuss the results of his [...] Preservative Free, Intramu scular 01/10/2015 Tdap 12/30/2021 Social History Tobacco Use Types Packs/Day Years [...] on file Legal Sex Male 11:11 PM ANESTHESIOLOGY PHYSICIAN Gender Identity Not on file Sexual Orientation Not on file Last Filed Vital Signs Vital Sign Reading Time Taken Comments Blood Pressure 122/78 03/17/2022 4:20 PM ANESTHESIOLOGY PHYSICIAN Pulse 88 03/17/2022 4:20 PM ANESTHESIOLOGY PHYSICIAN Temperature 37.1 ??C (98.8 ??F) 02/10/2022 5:16 PM CS T Respiratory Rate 18 03/17/2022 4:20 PM ANESTHESIOLOGY PHYSICIAN Oxygen Saturation 98% 03/17/2022 4:20 PM ANESTHESIOLOGY PHYSICIAN Inhaled Oxygen Concentration - - Weight 90.7 kg (200 lb) 03/17/2022 4:20 PM ANESTHESIOLOGY PHYSICIAN Height 162.6 cm (5' 4 ) 03/17/2022 4:20 PM ANESTHESIOLOGY PHYSICIAN Body Mass Index 34.33 03/17/2022 4:20 PM ANESTHESIOLOGY PHYSICIAN Plan of Treatment Not on file [facility] Care Teams Embedded Systems Software Developer Relationship Specialty Start Date End Date Akash Carlisle MD [address] [place] [address] PCP - General Family Medicine 12/30/21
[2024-05-02 12:18] VITALS: BMI 33.3
--- NOTE | 2024-05-02 12:18 | WPDHOMESLEEP ---
Sleep Study - Home Unattended Date of Study: 04/25/24 Ordering Provider: Lidya Menendez APRN Interpreting Provider: Yamila Helton, DO Home Sleep Study Type: Watch PAT Height: 1.65 m Weight: 90.718 kg Body Mass Index: 33.3 Neck Circumference (inches): 17.5 [place]: 2 Reason for Sleep Study snoring Sleep History The patient is a 38-year-old male with previously diagnosed sleep apnea that had a sleep study ordered by his primary care to start treatment if he qualifies. The patient admits to snoring loudly, interruptions in breathing while asleep, trouble maintaining sleep and unwanted behaviors during sleep. The patient does choke or gasp at night. He does have trouble breathing on his back. He does have morning headaches. He denies having a dry or sore mouth / throat in the morning. He denies nocturnal heartburn. He does urinate twice per night. He does have difficulty falling asleep. He does have difficulty returning to sleep if he wakes up throughout the night. He denies hypnotic or sedative use. He denies feeling anxious about sleep. He does feel tired or sleepy during the day. He denies feeling tired in the morning. He does have the urge to fall asleep during the day. He denies feeling drowsy while driving. He denies sleep paralysis, cataplexy and hypnagogic/ hypnopompic hallucinations. He denies clenching or grinding his teeth. He does kick or jerk is legs excessively. He denies having a restless feeling in his legs. He goes to bed at 9:30 p.m. on work days and at 11:00 p.m. on his days off. It takes him 15 minutes to fall asleep on work days and 1 hour on his days off. He gets 6 hours of sleep on his work days and 4 hours of sleep on his days off. His sleep is not restorative on his days off. He denies taking any planned naps. He does admit to acting out his dreams. He does sleep walk. He consumes 1-2 caffeinated beverages per day. He consumes 1 alcoholic beverage 1-2 nights per week. He denies tobacco use. He denies exercising on a regular basis. [facility] Surgical History Surgical History History of tonsillectomy History of appendectomy Family History Family History Mother Diabetes mellitus Hypertension Depression Social History Social History Smoking status: Never smoker Alcohol use details: occasionally Substance use: never Lack of Transportation: No Lack of Food: Never True Current Housing: I Have Housing Concerned About Future Housing: No Difficulty Paying Gas/Electric Bills: No Difficulty Paying for Meds: No Currently Unemployed: No Education: High School Diploma/GED Difficulty w/ Childcare or Family Care: No Medications Home Medications ?Medication ?Instructions ?Recorded ?Confirmed ?Type No Home Medications 03/09/24 03/09/24 History Sleep Procedure The sleep study was completed using [employer] a technically adequate device with seven channels: peripheral arterial tone, actigraphy, body position, snore, respiratory movement, pulse oximetry, sleep staging, and heart rate. Prior to using the device, the patient received verbal and written instructions for its application and was provided with the help desk phone number for additional telephonic instruction with 24-hour availability of qualified personnel to answer questions. The study was scored using CMS guidelines. Sleep Architecture The total recording time is 5 hrs, 24 min. The total sleep time is 4 hrs, 47 min. Sleep latency is 6 minutes. REM latency is 41 minutes. The patient had 8 episodes of waking. Sleep architecture shows 15.9% deep sleep, 48.5% light sleep, and (as % Total Sleep Time) showed NREM (Light 48.5%; Deep 15.9%), and a 35.7% stage REM. The patient spent 66.3% of total sleep time in the supine position. Sleep efficiency was 88.58. Respiratory Analysis The overall AHI (pAHI 3%:) is 36.6. The central AHI is 1.1. The AHI was 24.2 in NREM and 58.3 in REM sleep. The AHI was 44.0 in Supine and 22.5 in Non-supine sleep. Percent of Abdoulaye Medina respirations is 0.0. Oximetry Data The oxygen desaturation index (MILAN 4%:) is 23.6. The mean saturation is 93%, and the lowest saturation is 78%. Time spent with saturation < 88% is 7.8 minutes. Snoring Profile Snoring average intensity is 45 dB. The patient snored above 45 decibels for 104.4 minutes, 36.4% of sleep time. Cardiac Profile The average pulse rate is 63 beats per minutes. The lowest pulse rate is 51 bpm. The highest pulse rate reported is 99 bpm. Atrial fibrillation was not detected. No premature beats were detected. Assessment and Plan Assessment and Plan (1) RAYMUNDO (obstructive sleep apnea): Code(s): G47.33 - Obstructive sleep apnea (adult) (pediatric) Status: Acute Assessment and Plan: The patient had an overall AHI of 24.4 with desaturation down to 78%. This is consistent with moderate sleep apnea. The patient had a REM AHI of 47.7. Due to the patient's sleep apnea being nearly twice as severe in REM sleep, he would benefit more from a CPAP titration study compared to AutoPAP. I recommend that the patient have a CPAP titration with the use of a hypnotic (Lunesta 2-3 mg or Ambien 5-10 mg) to ensure we obtain enough sleep data and find an optimal pressure. The patient also admits to acting out dreams and sleep walking as an adult. I recommend asking the patient more detailed questions about dream enactment behavior and sleep walking. Data The data obtained during this sleep study is adequate for interpretation. Certification This sleep study has been reviewed by a board certified sleep medicine physician.
== END 2024-04-26 13:29 | disposition home or self-care (01) ==
LOC: ANHCSM 07:56
PROVIDERS: PCP Nurse Practitioner Family; Visit Provider Nurse Practitioner Family
DX: G47.33 Obstructive sleep apnea (adult) (pediatric) (principal)
CPT/HCPCS: 95800

== ENCOUNTER 2024-06-29 08:12 | Outpatient (CLI) | payer OTHER, MEDICAID, SELFPAY ==
--- OUTSIDE RECORDS SUMMARY | 2024-06-29 08:19 | XMS_ITS | Clinical Summary ---
Author Organization [facility] Address [address] [place] [id number] Care Team Providers Care Realtime Reporter Name Role Phone Eloise Olivas MD Primary Care Provide r Allergies No [...] Comments Blood Pressure 117/84 03/17/2021 1:01 PM CAR CLEANER Pulse 69 03/17/2021 1:01 PM CAR CLEANER Temperature 36.1 C (97 F) 03/17/2021 1:01 PM CAR CLEANER Respiratory Rate 16 03/17/2021 1:01 PM CAR CLEANER Oxygen Saturation 97% 03/17/2021 1:01 PM CAR CLEANER Inhaled Oxygen Concentration - - Weight 89.8 kg (198 lb) 05/18/2016 10:42 AM CAR CLEANER Height 166.4 cm (5' 5.5 ) 05/18/2016 10:42 AM CS T Body Mass Index 32.45 05/18/2016 10:42 AM CAR CLEANER Plan of Treatment Health Maintenance Due Date Last Done Comments DTAP/TDAP/TD VACCINES (1 - Tdap) 2004 HEPATITIS B VACCINES (1 of 3 - 19+ 3-dose series) 2004 INFLUENZA VACCINE (#1) 2023 HPV VACCINES Aged Out No longer eligi ble based on patient's age to complete this topic PNEUMOCOCCAL VACCINE 0-49 YEARS Aged Out No longer eligible based on patient's age to complete this topic Insurance [address] [place] [id number] [facility] BLUE ACCESS/TRUE [place] [id number] [facility] [employer] PL[employer] Care Teams Realtime Reporter Relationship Specialty Start Date End Date Eloise Olivas MD [address] [place] [id number] PCP - General Family Practice 04/04/18
--- OUTSIDE RECORDS SUMMARY | 2024-06-29 08:19 | XMS_ITS | Clinical Summary ---
Author Organization [address] e Address [address] [facility] [place] [address] Care Team Providers Care Planer Stone Name Role Phone Akash Carlisle MD Primary Care Provider [phone] Allergies No known active allergies Medications No known medications Active Problems Patient Care Coordination No te Formatting of this note migh t be different from the original. Hearing loss Problem Noted Date Diagnosed Date Obstructive sleep apnea 03/17/2022 Assessment & Plan (03/17/2022 4:33 PM INSULATION CUPOLA OPERATOR): We did discuss the results of his [...] of weight on sleep and cholesterol. Immunizations Immunization Administration Dates Next Due Influenza, Quadrivalent, Spl [...] on file Legal Sex Male 11:11 PM INSULATION CUPOLA OPERATOR Gender Identity Not on file Sexual Orientation Not on file Obstetrics History Last Filed Vital Signs Vital Sign Reading Time Taken Comments Blood Pressure 122/78 03/17/2022 4:20 PM INSULATION CUPOLA OPERATOR Pulse 88 03/17/2022 4:20 PM INSULATION CUPOLA OPERATOR Temperature 37.1 C (98.8 F) 02/10/2022 5:16 PM INSULATION CUPOLA OPERATOR Respiratory Rate 18 03/17/2022 4:20 PM INSULATION CUPOLA OPERATOR Oxygen Saturation 98% 03/17/2022 4:20 PM INSULATION CUPOLA OPERATOR Inhaled Oxygen Concentration - - Weight 90.7 kg (200 lb) 03/17/2022 4:20 PM INSULATION CUPOLA OPERATOR Height 162.6 cm (5' 4 ) 03/17/2022 4:20 PM INSULATION CUPOLA OPERATOR Body Mass Index 34.33 03/17/2022 4:20 PM INSULATION CUPOLA OPERATOR Plan of Treatment Health Maintenance Due Date Last Done Comments Hepatitis C Screening 1985 Varicella Vaccines (1 of 2 - 13+ 2-dose series) 1998 Hepatitis B Screening 12/29/2003 Depression Screening 12/30/2022 12/30/2021 Regular Well Visit/Exam 18-64 12/30/2022 12/30/2021 Covid-19 Vaccine ( season) 2023 08/15/2020, 07/12/2020 Influenza Vaccine (Season Ended) 2024 12/30/2021, 02/18/2021, 01/10/2015, Additional history exists DTaP/Tdap/Td Vaccine (2 - Td or Tdap) 12/31/2031 12/30/2021 HPV Vaccines Aged Out No longer eligi ble based on patient's age to complete this topic Pneumococcal vaccine <65 Aged Out No longer eligible based on patient's age to complete this topic Insurance [facility] Care Teams Planer Stone Relationship Specialty Start Date End Date Akash Carlisle MD [address] [place] [id number] PCP - General Family Medicine 12/30/21
--- OUTSIDE RECORDS SUMMARY | 2024-06-29 08:19 | XMS_ITS | Clinical Summary ---
Author Organization [facility] Address [address] [place] [address] Care Team Providers Care Wax Ball Molder Name Role Phone Jeremy Herrera MD Primary Care Provider [phone] Source Comments [facility],non-owned Affiliates and Associated Physician Practices is amultiple site organization consisting of ambulatory clinics and hospital sitesin [place], [place], [place] and [place]. This disclosure is being madepursuant to the Care Everywhere program and may not contain all information available regarding this patient. Last updated 17.[facility] Allergies No known active allergies Medications * [...] Diagnosed Date Resolved Date Cough 06/14/2009 08/05/2021 Encounters Date Type Department Care Team Description 06/05/2024 Travel from Last 3 Months Immunizations Name Administration Dates Next Due FLU VACCINE TRI IIV3 SPLIT IM (FLUVIRIN) 014 INFLUENZA VACCINE, QUADR. (F LUZONE; FLULAVAL; FLUARIX; AFLURIA QUADRIVALENT; 6MO+), 0.5 ML (IIV4) 02/18/2021 INFLUENZA VACCINE, TRIV. (FL UZONE; FLULAVAL; FLUARIX; AFLURIA TRIVALENT; 6MO+), 0.5 ML (IIV3) 01/10/2015 Family History Medical History Relation Name Comments Hypercholesterolemia Father CAD (Coronary Artery Disease) Maternal Grandfather [place] 60's Cancer - Pancreatic Maternal Grandmother Depression [...] Sex Assigned at Male 03/06/2021 6:59 AM RETAINING ROOM CUTTER Gender Identity Male 03/06/2021 6:59 AM RETAINING ROOM CUTTER Sexual Orientation Straight 03/06/2021 6: 59 AM RETAINING ROOM CUTTER Last Filed Vital Signs Vital Sign Reading Time Taken Comments Blood Pressure 132/80 08/05/2021 4:00 PM CDT Pulse 75 08/05/2021 4:00 PM CDT Temperature 36.7 C (98.1 F) 03/03/2018 12:58 PM RETAINING ROOM CUTTER Respiratory Rate 17 07/10/2015 9:50 AM CDT Oxygen Saturation 97% 08/05/2021 4:00 PM CDT Inhaled Oxygen Concentration - - Weight 99.9 kg (220 lb 3.2 oz) 08/05/2021 4:00 P M CDT Height 162.6 cm (5' 4 ) 08/05/2021 4:00 PM CDT Body Mass Index 37.8 08/05/2021 4:00 PM CDT Plan of Treatment Upcoming Encounters Date Type Department Care Team (Late st Contact Info) Description 08/08/2024 8:30 AM CDT Testing Visit [facility] [address], [address] [place] [address] Nicki Pulliam, AuD [address] [place] [address] 08/08/2024 9:00 AM CDT Office Visit [facility] [address], [address] [place] [address] Kar Pham MD [address] [facility] [address] [place] [address] Health Maintenance Due Date Last Done Comments HIV SCREENING 2000 HEPATITIS C SCREENING 12/24/2003 DTAP/TDAP/TD VACCINES (1 - Tdap) 2004 HEPATITIS B VACCINE (1 of 3 - 19+ 3-dose series) 2004 COVID-19 VACCINE (3 - 2023-2 5 season) 2023 08/15/2020, 07/12/2020 DEPRESSION SCREENING 03/29/2024 08/05/2021 INFLUENZA VACCINE (Season Ended) 2024 02/18/2021, 01/10/2015, 01/02/2014 ZOSTER VACCINE (1 of 2) 12/29/2035 HIB VACCINE Aged Out No longer eligi ble based on patient's age to complete this topic HPV VACCINE Aged Out No longer eligi ble based on patient's age to complete this topic MENINGOCOCCAL (Group B) VACCINE SHARED DECISION-MAKING Aged Out No longer eligible based on patient's age to complete this topic MENINGOCOCCAL GROUPS A/C/Y/W VACCINE Aged Out No longer eligible b ased on patient's age to complete this topic PNEUMOCOCCAL VACCINE Aged Out No long er eligible based on patient's age to complete this topic Additional Health Concerns Infection Onset Date 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 [place] [id number] PCP - General Family Medicine 08/05/21
--- OUTSIDE RECORDS SUMMARY | 2024-06-29 08:20 | XMS_ITS | Referral Summary ---
Author Organization [address] e Address [address] [facility] [place] [address] Care Team Providers Care Baby Formula Worker Name Role Phone Akash Carlisle MD Primary Care Provider [phone] Allergies No known active allergies Medications No known medications Active Problems Patient Care Coordination No te Formatting of this note migh t be different from the original. Hearing loss Problem Noted Date Diagnosed Date Obstructive sleep apnea 03/17/2022 Assessment & Plan (03/17/2022 4:33 PM DIVISION ORDER ANALYST): We did discuss the results of his [...] on file Legal Sex Male 11:11 PM DIVISION ORDER ANALYST Gender Identity Not on file Sexual Orientation Not on file Last Filed Vital Signs Vital Sign Reading Time Taken Comments Blood Pressure 122/78 03/17/2022 4:20 PM DIVISION ORDER ANALYST Pulse 88 03/17/2022 4:20 PM DIVISION ORDER ANALYST Temperature 37.1 C (98.8 F) 02/10/2022 5:16 PM DIVISION ORDER ANALYST Respiratory Rate 18 03/17/2022 4:20 PM DIVISION ORDER ANALYST Oxygen Saturation 98% 03/17/2022 4:20 PM DIVISION ORDER ANALYST Inhaled Oxygen Concentration - - Weight 90.7 kg (200 lb) 03/17/2022 4:20 PM DIVISION ORDER ANALYST Height 162.6 cm (5' 4 ) 03/17/2022 4:20 PM DIVISION ORDER ANALYST Body Mass Index 34.33 03/17/2022 4:20 PM DIVISION ORDER ANALYST Plan of Treatment Not on file Insurance [facility] Care Teams Baby Formula Worker Relationship Specialty Start Date End Date Akash Carlisle MD [address] [place] [id number] PCP - General Family Medicine 12/30/21
--- NOTE | 2024-07-25 20:55 | WPDSLEEPSTUD ---
Sleep Study Date of Study: 06/29/24 Ordering Provider: Lidya Menendez APRN Interpreting Physician: Jennifer Stewart MD Sleep Study Type: CPAP Titration Height: 1.65 m Weight: 83.915 kg Body Mass Index: 30.7 Neck Circumference (inches): 19 [place]: 2 Reason for Sleep Study * 04/25/2024 home sleep test using WatchPat showing moderate obstructive sleep apnea, the apnea-hypopnea index was 24.4 with desaturation to 78%, much worse in REM. Patient returns for a PAP titration Sleep History Juan Coats is a 38-year-old male with previously diagnosed sleep apnea who had a home sleep test 04/25/2024 showing moderate obstructive sleep apnea. This history is taken from his March study. The patient admits to snoring loudly, interruptions in breathing while asleep, trouble maintaining sleep and unwanted behaviors during sleep. The patient does choke or gasp at night. He does have trouble breathing on his back. He does have morning headaches. He denies having a dry or sore mouth / throat in the morning. He denies nocturnal heartburn. He does urinate twice per night. He does have difficulty falling asleep. He does have difficulty returning to sleep if he wakes up throughout the night. He denies hypnotic or sedative use. He denies feeling anxious about sleep. He does feel tired or sleepy during the day. He denies feeling tired in the morning. He does have the urge to fall asleep during the day. He denies feeling drowsy while driving. He denies sleep paralysis, cataplexy and hypnagogic/ hypnopompic hallucinations. He denies clenching or grinding his teeth. He does kick or jerk is legs excessively. He denies having a restless feeling in his legs. He goes to bed at 9:30 p.m. on work days and at 11:00 p.m. on his days off. It takes him 15 minutes to fall asleep on work days and 1 hour on his days off. He gets 6 hours of sleep on his work days and 4 hours of sleep on his days off. His sleep is not restorative on his days off. He denies taking any planned naps. He does admit to acting out his dreams. He does sleep walk. He consumes 1-2 caffeinated beverages per day. He consumes 1 alcoholic beverage 1-2 nights per week. He denies tobacco use. He denies exercising on a regular basis. [facility] Past Medical History Medical History (Updated 07/25/24 @ 20:58 by Jennifer Stewart MD) Prediabetes Hyperlipidemia Depression RAYMUNDO (obstructive sleep apnea) Surgical History Surgical History History of tonsillectomy History of appendectomy Family History Family History Mother Diabetes mellitus Hypertension Depression Social History Social History Smoking status: Never smoker Alcohol use details: occasionally Substance use: never Lack of Transportation: No Lack of Food: Never True Current Housing: I Have Housing Concerned About Future Housing: No Difficulty Paying Gas/Electric Bills: No Difficulty Paying for Meds: No Currently Unemployed: No Education: High School Diploma/GED Difficulty w/ Childcare or Family Care: No Medications Home Medications ?Medication ?Instructions ?Recorded ?Confirmed ?Type zolpidem 5 mg tablet 5 mg PO ONCE #1 tablet 05/24/24 Rx Sleep Procedure A full CPAP polysomnogram using the [employer] multi-channel system recorded the standard physiologic parameters including EEG, EOG, submentalis EMG, anterior tibialis EMG, EKG, body position, nasal and oral airflow using nasal pressure sensor and thermistor. Respiratory parameters of chest and abdominal movements were recorded with Respiratory Inductance Plethysmography belts. Oxygen saturation was recorded by pulse oximetry. Video monitoring was also performed. Sleep stages, periodic limb movements, and EEG arousals were scored in 30 second epochs according to the criteria of the AASM Scoring Manual. The Apnea-Hypopnea Index was calculated using CMS guidelines for definition of hypopnea while scoring respiratory events. The patient self-administered Ambien 5 mg at the beginning of the study. The patient was started on CPAP using a medium Griffin and Paykel Solo nasal mask with heated humidity, initial pressure was CPAP 5 cm, increased to 7 cm, 8 cm, 10 cm, 11 cm, 12 cm. He had all stages of sleep including REM, slept supine throughout the study. On CPAP 12, he spent 38.5 minutes in bed, 1.5 minutes awake, 26 minute in non-REM and 11 minutes in REM. Sleep efficiency was 96.1%. The residual apnea-hypopnea index was 0. Desaturation was eliminated, the minimum saturation was 92%. This is the optimal pressure. Sleep Architecture The total recording time was 462.8 minutes. The total sleep time was 421.0 minutes. Sleep latency was 4.9 minutes. REM latency was 54.5 minutes. Sleep efficiency was 91.0%. The patient had 17 awakenings for an awakening index of 2.4. Wake after Sleep Onset time was 37.0 minutes. The patient spent 13.5 minutes, 3.2% of total sleep time in Stage N1. The patient spent 225.0 minutes, 53.4% in Stage N2. The patient spent 33.5 minutes, 8.0% in Stage N3. The patient spent 149.0 minutes, 35.4% in Stage REM. Respiratory Analysis The patient had 24 hypopneas, no obstructive apneas, no mixed apneas, and no central apneas for an overall Apnea Hypopnea Index of 3.4 events per hour. The REM Apnea Hypopnea Index was 8.1. The NREM Apnea Hypopnea Index was 0.9. The patient had a Central Apnea Hypopnea Index of 0. There were no Respiratory Effort Related Arousals. The Respiratory Disturbance Index is 5.3 events per hour. There was no evidence of Abdoulaye-Medina Respirations. Arousals There were 44 total arousals for an arousal index of 6.3. There were 35 spontaneous arousals for an index of 5.0. There were 1 arousal due to respiratory events for an index of 0.1. There was 1 arousal due to periodic limb movements for an index of 0.1. There were 7 arousals due to isolated limb movements for an index of 1.0. Periodic Limb Movements The patient had 52 isolated limb movements with an index of 7.4. The patient had 14 periodic limb movements with index of 2.0. Patient had a total of 66 limb movements with a total limb movement index of 9.4. Oximetry Data The patient had an average oxygen saturation of 94.2% in sleep with a minimum oxygen saturation of 77% and a maximum oxygen saturation of 98%. The patient had 24 oxygen desaturations that were 4% or greater resulting in an Oxygen Desaturation Index of 3.4. The patient spent 1.5 minutes, 0.3% of total sleep time with an oxygen saturation below 88%. Snoring Profile Snoring was mild, eliminated during the titration. Cardiac Profile The EKG showed normal sinus rhythm. The patient had an average pulse rate of 56 bpm with a minimum pulse rate of 46 bpm and a maximum pulse rate of 88 bpm. No arrhythmias noted. EEG Profile EEG was unremarkable, no evidence of seizures. Assessment and Plan Assessment and Plan (1) RAYMUNDO (obstructive sleep apnea): Code(s): G47.33 - Obstructive sleep apnea (adult) (pediatric) Status: Acute Assessment and Plan: This full night CPAP titration on 06/29/2024 shows an excellent study with an optimal pressure of CPAP 12 cm using a medium Griffin and Paykel Solo nasal mask and heated humidity. On CPAP 12, he spent 38.5 minutes in bed, 1.5 minutes awake, 26 minute in non-REM and 11 minutes in REM. Sleep efficiency was 96.1%. The residual apnea-hypopnea index was 0. Desaturation was eliminated, the minimum saturation was 92%. This is the optimal pressure. The patient should be prescribed this ResMed equipment as well as tubing, filters and reservoir. This should be used with all episodes of sleep. Compliance should be reviewed within 31-90 days of starting therapy for usage greater than 4 hours per night greater than 70% of the nights. The patient should be asked about symptoms such as excessive daytime sleepiness, quality of sleep, decreased nocturia, increased mental functioning such as memory, mood, and concentration. This patient has a history of acting out his dreams, kicking and jerking legs excessively. He has a sleep walking. During this CPAP titration, he did not have any dream enactment behavior. He did not have REM without atonia. Treating obstructive sleep apnea can reduce and eliminate REM behavior disorder. There is no evidence of dream enactment behavior and sleep walking on this test. Further clinical follow-up is recommended. This may include asking the patient how often this happens and while on CPAP if he continues have any problems with that. If he does, please refer to sleep medicine. Data The data obtained during this sleep study is adequate for interpretation. Certification This sleep study has been reviewed by a board certified sleep medicine physician.
[2024-07-25 21:08] VITALS: BMI 30.7
== END 2024-06-30 05:38 | disposition home or self-care (01) ==
LOC: ANHCSM 08:13
PROVIDERS: PCP Nurse Practitioner Family; Visit Provider Nurse Practitioner Family
DX: G47.33 Obstructive sleep apnea (adult) (pediatric) (principal)
CPT/HCPCS: 95811

== ENCOUNTER 2024-09-22 08:30 | Emergency (ER) | payer OTHER, MEDICAID, SELFPAY ==
[2024-09-22 08:38] VITALS: BP 123/88; PULSE 64; RESP 18; TEMP 36.2; O2SAT 98
--- NOTE | 2024-09-22 08:57 | ED_ITS ---
HPI - Skin/Abscess/Foreign Bdy General Chief complaint: Skin/Abscess/Foreign Body Stated complaint: Skin/Abscess/Foreign Body Time Seen by Provider: 09/22/24 08:48 Source: patient and RN notes reviewed Mode of arrival: ambulatory Limitations: no limitations History of Present Illness HPI narrative: Patient presents today complaining of a poison sharri rash. States he was helping a friend trim his grass 5 days ago when his soon developed a rash on all 4 extremities afterwards while wearing a short sleeve shirt and shorts. States symptoms have been worsening since onset. Reports severe itching. He has tried Benadryl and cortisone with only mild short-term relief. Related Data Allergies Allergy/AdvReac Type Severity Reaction Status Date / Time No Known Allergies Allergy Verified 09/22/24 08:38 Review of Systems Review of Systems: CONSTITUTIONAL: Denies body aches, fever, chills, or sweats. EYES: Denies visual changes, redness, or discharge. ENT: Denies rhinorrhea, congestion, sore throat, or otalgia. CARDIOVASCULAR: Denies chest pain, palpitations, or edema. RESPIRATORY: Denies cough or dyspnea. GASTROINTESTINAL: Denies abdominal pain, nausea, vomiting, or diarrhea. GENITOURINARY: Denies dysuria or hematuria. SKIN: + pruritic rash MUSCULOSKELETAL: Denies back pain, joint pain, or myalgia. NEUROLOGIC: Denies headache, numbness, tingling, or weakness. PSYCH: Denies depression or anxiety. [facility]LY [facility] Past Medical History Medical History Prediabetes Hyperlipidemia Depression RAYMUNDO (obstructive sleep apnea) Surgical History Surgical History History of tonsillectomy History of appendectomy Family History Family History Mother Diabetes mellitus Hypertension Depression Social History Social History Smoking status: Never smoker Alcohol use details: occasionally Substance use: never Lack of Transportation: No Lack of Food: Never True Current Housing: I Have Housing Concerned About Future Housing: No Difficulty Paying Gas/Electric Bills: No Difficulty Paying for Meds: No Currently Unemployed: No Education: High School Diploma/GED Difficulty w/ Childcare or Family Care: No Comments At time of signature, I have reviewed and agree with nursing past medical, surgical, social and family history unless otherwise noted. Please see nursing chart for further information. There is no relevant family history pertinent to the presenting complaint Exam Narrative: GENERAL: Well-appearing, well-nourished, and in no acute distress. HEAD: Normocephalic, atraumatic. EYES: EOMI. No redness or drainage. Conjunctivae normal. ENT: Mucous membranes pink and moist. NECK: Normal AROM. CHEST: No respiratory distress. EXTREMITIES: Normal range of motion. No edema. SKIN: Warm, dry. Capillary refill normal. Normal skin turgor. Tiny erythematous papules and patches and lines to the bilateral forearms, hands, and lower legs. No drainage, induration, or other signs of bacterial infection. NEURO: No focal deficits. Alert and oriented x3. Gait steady. PSYCH: Normal affect. No signs of depression or anxiety. Course Course Level of Care: Express Care Visit Vital Signs Vital signs: Vital Signs Temperature 97.2 F L 09/22/24 08:38 Pulse Rate 64 09/22/24 08:38 Respiratory Rate 18 09/22/24 08:38 Blood Pressure 123/88 09/22/24 08:38 Pulse Oximetry 98 09/22/24 08:38 Oxygen Delivery Room Air 09/22/24 08:38 Temperature 97.2 F L 09/22/24 08:38 Pulse Rate 64 09/22/24 08:38 Respiratory Rate 18 09/22/24 08:38 Blood Pressure 123/88 09/22/24 08:38 Pulse Oximetry 98 09/22/24 08:38 Oxygen Delivery Room Air 09/22/24 08:38 Reviewed MDM - Skin/Abscess/Foreign Bdy MDM Narrative Medical decision making narrative: Patient is pleasant 38-year-old male with recent exposure to poison sharri and rash to the bilateral extremities. He will be treated with course of prednisone and has been instructed to use an antihistamine as well. There are no obvious signs of bacterial infection at this time. He has also been instructed to discard any gloves at home as they may be covered in oil that could cause additional rash. Patient agrees with plan. Vital signs stable. Anticipatory guidance given. Differential Diagnosis Differential diagnosis: Likely abscess of skin or subcutaneous tissue, urticaria, cellulitis, eczema, insect bites, impetigo and contact dermatitis Critical Care Time Critical Care Time Critical Care Time: No Discharge Plan Discharge Clinical Impression: Poison sharri dermatitis Patient Disposition: Home Condition: Stable Instructions: Poison Sharri (ED) Additional Instructions: Take the prednisone as prescribed. Take a daily antihistamine such as Zyrtec, Claritin, or Yessy for itching if needed. You may also try a topical treatments such as calamine lotion or hydrocortisone. Follow-up with your PCP in 4-5 days if symptoms have not been resolving. Your blood pressure was elevated above 120/80 today at Urgent Care. This puts you above the threshold for follow up. Please schedule a followup visit with your personal physician as soon as possible, for further evaluation and treatment. Even blood pressure exceeding 120/80 may indicate pre-hypertension. Patient Language: Cymro Prescriptions: New prednisone 10 mg tablet See Rx Instructions .ROUTE .COMPLEX Qty: 28 0RF Rx Instructions: 5 tabs daily x2 days,then 4 tabs daily x2 days,then 3 tabs daily x2 days,then 2 tabs daily x2 days No Action ketoconazole 2 % cream 1 applic topical DAILY Qty: 60 2RF Rx Instructions: Apply to affected and surrounding area(s) once daily until 1 week after clinical resolution, typically for 4 to 6 weeks total trazodone 50 mg tablet 50 mg PO .COMPLEX PRN (Reason: insomnia) Qty: 60 0RF Rx Instructions: take 1-2 tablets at bedtime as needed fluoxetine 20 mg tablet 20 mg PO DAILY Qty: 30 0RF Follow-up/Referrals: Lidya Menendez APRN [Primary Care Provider] - Stand Alone Forms: Work/School Release IP Time of Disposition: 08:56
== END 2024-09-22 08:58 | disposition home or self-care (01) ==
PROVIDERS: Emergency Provider Nurse Practitioner; PCP Nurse Practitioner Family
DX: L23.7 Allergic contact dermatitis due to plants, except food (principal)
CPT/HCPCS: 99213; G0463

== ENCOUNTER 2024-10-11 12:00 | Outpatient (CLI) | payer OTHER, MEDICAID, SELFPAY ==
--- NOTE | ~2024-10-11 | US_ITS ---
US soft tissue abdomen 10/11/2024 12:33 Indication: Palpable abdominal lump for long time Procedure: High-resolution ultrasound of the left mid abdomen in the area of palpable concern Comparison: CT dated 07/20/2021 Findings: There is an oval parallel oriented encapsulated slightly hyperechoic mass in the area of pa lpable concern measuring 2.1 x 1.6 x 1.4 cm, most compatible with benign lipoma. No internal vascular ity or significant posterior features. Impression: 1: Probable benign lipoma measuring 2.1 cm maximum dimension in the left mid abdomen subcutaneous tis sues, corresponding to the area palpable concern. Recommend follow-up ultrasound as clinically warran maurice. Reviewed, dictated and finalized at location B. Impression: 1: Probable benign lipoma measuring 2.1 cm maximum dimension in the left mid ab domen subcutaneous tissues, corresponding to the area palpable concern. Recomme nd follow-up ultrasound as clinically warranted.
--- OUTSIDE RECORDS SUMMARY | 2024-10-11 12:15 | XMS_ITS | Referral Summary ---
Author Organization [address] e Address [address] [facility] [place] [address] Care Team Providers Care Dress Marker Name Role Phone Akash Carlisle MD Primary Care Provider [phone] Allergies No known active allergies Medications No known medications Active Problems Patient Care Coordination No te Formatting of this note migh t be different from the original. Hearing loss Problem Noted Date Diagnosed Date Obstructive sleep apnea 03/17/2022 Assessment & Plan (03/17/2022 4:33 PM HOME ECONOMICS EXPERT): We did discuss the results of his [...] on file Legal Sex Male 11:11 PM HOME ECONOMICS EXPERT Gender Identity Not on file Sexual Orientation Not on file Last Filed Vital Signs Vital Sign Reading Time Taken Comments Blood Pressure 122/78 03/17/2022 4:20 PM HOME ECONOMICS EXPERT Pulse 88 03/17/2022 4:20 PM HOME ECONOMICS EXPERT Temperature 37.1 C (98.8 F) 02/10/2022 5:16 PM HOME ECONOMICS EXPERT Respiratory Rate 18 03/17/2022 4:20 PM HOME ECONOMICS EXPERT Oxygen Saturation 98% 03/17/2022 4:20 PM HOME ECONOMICS EXPERT Inhaled Oxygen Concentration - - Weight 90.7 kg (200 lb) 03/17/2022 4:20 PM HOME ECONOMICS EXPERT Height 162.6 cm (5' 4) 03/17/2022 4:20 PM HOME ECONOMICS EXPERT Body Mass Index 34.33 03/17/2022 4:20 PM HOME ECONOMICS EXPERT Plan of Treatment Not on file [facility] Care Teams Dress Marker Relationship Specialty Start Date End Date Akash Carlisle MD [address] [place] [id number] PCP - General Family Medicine 12/30/21
--- OUTSIDE RECORDS SUMMARY | 2024-10-11 12:15 | XMS_ITS | Clinical Summary ---
Author Organization [address] e Address [address] [facility] [place] [address] Care Team Providers Care Food Service Attendant Name Role Phone Akash Carlisle MD Primary Care Provider [phone] Allergies No known active allergies Medications No known medications Active Problems Patient Care Coordination No te Formatting of this note migh t be different from the original. Hearing loss Problem Noted Date Diagnosed Date Obstructive sleep apnea 03/17/2022 Assessment & Plan (03/17/2022 4:33 PM MANAGER SUPPORT SERVICES): We did discuss the results of his [...] on file Legal Sex Male 11:11 PM MANAGER SUPPORT SERVICES Gender Identity Not on file Sexual Orientation Not on file Obstetrics History Last Filed Vital Signs Vital Sign Reading Time Taken Comments Blood Pressure 122/78 03/17/2022 4:20 PM MANAGER SUPPORT SERVICES Pulse 88 03/17/2022 4:20 PM MANAGER SUPPORT SERVICES Temperature 37.1 C (98.8 F) 02/10/2022 5:16 PM MANAGER SUPPORT SERVICES Respiratory Rate 18 03/17/2022 4:20 PM MANAGER SUPPORT SERVICES Oxygen Saturation 98% 03/17/2022 4:20 PM MANAGER SUPPORT SERVICES Inhaled Oxygen Concentration - - Weight 90.7 kg (200 lb) 03/17/2022 4:20 PM MANAGER SUPPORT SERVICES Height 162.6 cm (5' 4) 03/17/2022 4:20 PM MANAGER SUPPORT SERVICES Body Mass Index 34.33 03/17/2022 4:20 PM MANAGER SUPPORT SERVICES Plan of Treatment Health Maintenance Due Date Last Done Comments Hepatitis C Screening 1985 Varicella Vaccines (1 of 2 - 13+ 2-dose series) 1998 Hepatitis B Screening 12/29/2003 Depression Screening 12/30/2022 12/30/2021 Regular Well Visit/Exam 18-64 12/30/2022 12/30/2021 Covid-19 Vaccine ( season) 2023 08/15/2020, 07/12/2020 Influenza Vaccine (#1) 2024 , 02/18/2021, 01/10/2015, Additional history exists DTaP/Tdap/Td Vaccine (2 - Td or Tdap) 12/31/2031 12/30/2021 HPV Vaccines Aged Out No longer eligi ble based on patient's age to complete this topic Pneumococcal vaccine <65 Aged Out No longer eligible based on patient's age to complete this topic Insurance [facility] Care Teams Food Service Attendant Relationship Specialty Start Date End Date Akash Carlisle MD [address] [place] [id number] PCP - General Family Medicine 12/30/21
--- OUTSIDE RECORDS SUMMARY | 2024-10-11 12:15 | XMS_ITS | Clinical Summary ---
Author Organization [employer] [facility] Address [address] [place] [address] Care Team Providers Care Senior Patient Account Representative Name Role Phone Lidya Menendez CARE MANAGEMENT ASSISTANT-SEAM STAYER Primary Care Provider + Source Comments [facility],non-owned Affiliates and Associated Physician Practices is amultiple site organization consisting of ambulatory clinics and hospital sitesin [place], [place], [place] and [place]. This disclosure is being madepursuant to the Care Everywhere program and may not contain all information available regarding this patient. Last updated 17.[employer] [facility] Allergies No known active allergies Medications * This document contains information received from the source organization and may not represent a complete record from that organization. * Be aware that medications may not be up to date on this document. Alwaysverify current medications with the patient. doxycycline hyclate (VIBRAMYCIN) 100 MG tablet Take 100 mg by mouth 2 times daily FOR 7 DAYS 08/01/2021 Active Active Problems Problem Noted Date Diagnosed Date MRSA (methicillin resistant staph aureus) cultur e positive 02/19/2014 Overview (03/02/2014): right buttocks Resolved Problems Problem Noted Date Diagnosed Date Resolved Date Cough 06/14/2009 08/05/2021 Encounters Date Type Department Care Team Description 09/13/2024 3:15 PM CDT Office Visit [facility] - ENT [address], [address] [place] [address] Melvin Horta MD External auditory canal atresia (Primary Dx); Mixed conductive and sensorineural hearing loss of right ear with restricted hearing of left ear; Sensorineural hearing loss (SNHL) of left ear with restricted hearing of right ear; Impacted cerumen of right ear 09/13/2024 Travel 08/11/2024 Travel 08/08/2024 9:00 AM CDT Office Visit [facility] - ENT [address], [address] [place] [address] Kar Pham MD External auditory canal atresia (Primary Dx) 08/08/2024 8:30 AM CDT Testing Visit [facility] - ENT [address], [address] [place] [id number] Nicki Pulliam AuD Mixed conductive and sensorineural hearing loss of right ear with restricted hearing of left ear 08/08/2024 Travel from Last 3 Months Immunizations Immunization Administration Dates Next Due FLU VACCINE TRI IIV3 SPLIT IM (FLUVIRIN) 014 INFLUENZA VACCINE, QUADR. (F LUZONE; FLULAVAL; FLUARIX; AFLURIA QUADRIVALENT; 6MO+), 0.5 ML (IIV4) 02/18/2021 INFLUENZA VACCINE, TRIV. (FL UZONE; FLULAVAL; FLUARIX; AFLURIA TRIVALENT; 6MO+), 0.5 ML (IIV3) 01/10/2015 Family History Medical History Relation Name Comments Hypercholesterolemia Father CAD (Coronary Artery Disease) Maternal Grandfather [place] 60's Cancer - Pancreatic Maternal Grandmother Depression [...] Sex Assigned at Male 03/06/2021 6:59 AM RESIDENTIAL SUPPORT SPECIALIST Legal Sex Male 6:36 AM RESIDENTIAL SUPPORT SPECIALIST Gender Identity Male 03/06/2021 6:59 AM RESIDENTIAL SUPPORT SPECIALIST Sexual Orientation Straight 03/06/2021 6: 59 AM RESIDENTIAL SUPPORT SPECIALIST Last Filed Vital Signs Vital Sign Reading Time Taken Comments Blood Pressure 137/95 08/08/2024 9:11 AM CDT Pulse 62 08/08/2024 9:11 AM CDT Temperature 36.7 C (98.1 F) 03/03/2018 12:58 PM RESIDENTIAL SUPPORT SPECIALIST Respiratory Rate 17 07/10/2015 9:50 AM CDT Oxygen Saturation 97% 08/05/2021 4:00 PM CDT Inhaled Oxygen Concentration - - Weight 81.6 kg (180 lb) 09/13/2024 2:13 PM CDT Height 165.1 cm (5' 5) 09/13/2024 2:13 PM CDT Body Mass Index 29.95 09/13/2024 2:13 PM CDT Plan of Treatment Upcoming Encounters Date Type Department Care Team (Late st Contact Info) Description 01/08/2025 1:00 PM CDT Office Visit [facility] - [facility]NT [address] [facility] [place] [address] [place] [address] Roberta Bhandari, [place] [address] [facility] [address] [place] [address] 01/10/2025 3:45 PM CDT Office Visit [facility] - ENT [address] , [facility] [place] [address] [place] [address] Melvin Horta MD [address] [place] [address] Health Maintenance Due Date Last Done Comments HIV SCREENING 2000 HEPATITIS C SCREENING 12/24/2003 DTAP/TDAP/TD VACCINES (1 - Tdap) 2004 HEPATITIS B VACCINE (1 of 3 - 19+ 3-dose series) 2004 HPV VACCINE (1 - 3-dose SCDM series) 2012 COVID-19 VACCINE (2023-2 5 season) 2023 08/15/2020, 07/12/2020 DEPRESSION SCREENING 03/29/2024 08/05/2021 INFLUENZA VACCINE (#1) 2024 , 01/10/2015, 01/02/2014 ZOSTER VACCINE (1 of 2) [...] on patient's age to complete this topic Procedures Procedure Name Priority Date/Time Associated Diagnosis Comments CO REMOVE CERUMEN IMPACTED W INSTR RT EAR Routine 09/13/2024 2:44 PM CDT Impacted cerumen of right ear IMAGING/RADIOLOGY/X RAY RESULTS ORDER 09/13/2024 AUDIOLOGY/TYMPANOME TRY ORDER Routine 08/08/2024 9:09 AM CDT from Last 3 Months Results * CO REMOVE CERUMEN IMPACTED W INSTR RT EAR (09/13/2024 2:44 PM CDT) Narrative Melvin Horta MD - 09/13/2024 2:44 PM CDT Melvin Horta MD 09/13/2024 2:45 PM Procedure: Binocular Microscopic Removal of Impacted Cerumen AD Indications: Cerumen impaction obscuring the tympanic membrane. Findings: See main note. Procedure Note: After verbal consent was obtained, the binocular operative microscope was brought into position. An otologic speculum was inserted into the cartilaginous external auditory canal. Cerumen was removed using a combination of cerumen loops, suction, and alligator forceps. There was no bleeding Melvin Horta MD Melvin Horta MD PROCEDURE/MINOR SURGICAL OR DERABLES Final Result * IMAGING/RADIOLOGY/XRAY RESULTS ORDER (09/13/2024) Anatomical Region Laterality Modality Other 09/13/2024 Narrative 09/13/2024 Ordered by an unspecified provider. us Scanned Document IMAGING Final Result * AUDIOLOGY/TYMPANOMETRY ORDER (08/08/2024 9:09 AM CDT) Nicki Contreras AuD - 08/08/2024 9:09 AM CDT History: Juan Spivey is a 38 year old male was seen for an assessment of their hearing.Patient reports that he has had hearing troubles out of his right ear since . 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 He reports that there may be a family history of this type of hearing loss, as his mother's side and son have similar issues with partial ear atresia and hearing loss. He denies any current pain, pressure, dizziness, or tinnitus. Results: Puretone air/bone conduction testing revealed a severe sloping to profound mixed hearing in the right ear and a normal sloping to essentially moderate sensorineural hearing in the left ear. Speech Round Boner Thresholds is in good agreement with pure tone average(see speech audiometry for details). Speech understanding was poor in the right ear and excellent in the left ear. Immittance measures revealed a type B with small ECV tympanogram in the right ear, indicating abnormal middle ear function. Results for the left ear revealed a Type A tympanogram, indicating normal middle ear function in that ear. These results were discussed in detail with the patient and all pertinent questions were answered. Recommendations: 1) ENT consult. 2) Re check per medical recommendation, annually, or if a change in hearing is suspected. 3) Hearing protection in noise. 4) Amplification pending interest/medical clearance. Consider CROS system or CI Xiomara Brumfield. [facility] Clinical Intensive Care Unit Registered Nurse Division of Audiology Department of Otolaryngology- Head & Neck Surgery [facility] Lic#: [id number] us Nicki Solano AUDIOLOGY SERVICES ORDERABL ES Final Result from Last 3 Months Additional Health Concerns Infection Onset Date Last Indicated MRSA 03/02/2014 03/02/2014 Insurance [facility] * Guarantor: JUAN GANT Account Type Relation to Patient Date of Phone Billing Address Personal/Family 1985 [address] [place] [id number] * Guarantor: JUAN MANUEL Account Type Relation to Patient Date of Phone Billing Address Personal/Family 1985 [address] [place] [id number] Care Teams Senior Patient Account Representative Relationship Specialty Start Date End Date Lidya Menendez APRN-SARIAH [address] [place] [address] PCP - General Nurse Practitioner 08/08/24
== END 2024-10-11 12:01 | disposition home or self-care (01) ==
PROVIDERS: PCP Nurse Practitioner Family; Visit Provider Nurse Practitioner Family
DX: R22.2 Localized swelling, mass and lump, trunk (principal)
CPT/HCPCS: 76705